=== PATIENT | female | born 1950 | race Caucasian/White ===

== ENCOUNTER → 2021-02-02 | Outpatient (CLI) | payer MEDICARE ==
[~2021-02-02] MED LIST: ALPRAZOLAM0.5 MG PO; AMITRIPTYLINE H50 M1 PO; AMITRIPTYLINE10 MG PO; ASPIR-TRIN325 MG PO; ASPIRIN81 M1 PO; BACTRIM DS 8001 TA1 PO; CELEBREX200 MG PO; DELTASONE20 MG PO; GLUCOPHAGE1000 MG PO; HYDROCODONE BIT1 T11 PO; HYDROXYZINE HCL25 MG PO; LEVOFLOXACIN500 MG PO; LEVOTHYROXIN0.112 M1 PO; LEVOTHYROXINE112 MCG PO; LIPITOR40 MG PO; LISINOPRIL10 MG PO; LISINOPRIL20 MG PO; METFORMIN1000 MG PO; METFORMIN500 MG PO; NYSTATIN CREAM15 GM T; PERCOCET 325 MG1 TA2 PO; PREDNISONE10 MG PO; SYNTHROID0.15 MG PO; TYLENOL WITH CO1 TA1 PO; XANAX0.5 MG PO; ZOFRAN ODT4 MG SL; ZOLOFT100 MG PO; ZOLOFT50 MG PO
[2021-02-02 14:02] LABS: BUN 17 mg/dl (7-24); CHLORIDE 108 mmol/L (98-107); CREATININE 0.92 mg/dL (0.55-1.02); POTASSIUM 3.5 mmol/L (3.5-5.1); SODIUM 140 mmol/L (136-145)
[2021-02-02 14:06] LABS: CHOLESTEROL 346 mg/dL (<200); HDL CHOLESTEROL 75 mg/dl (40-60); LDL CHOLESTEROL 244 mg/dL (9-159); TRIGLYCERIDES 135 mg/dl (<150); VLDL CHOLESTEROL 27 mg/dL (6-40)
== END | disposition home or self-care (01) ==
LOC: LAB 12:17
PROVIDERS: ATTEND Internal Medicine
DX: M51.36 Other intervertebral disc degeneration, lumbar region (principal); M47.816 Spondylosis without myelopathy or radiculopathy, lumbar region; I10 Essential (primary) hypertension; E03.9 Hypothyroidism, unspecified; E78.5 Hyperlipidemia, unspecified; E11.9 Type 2 diabetes mellitus without complications; E55.9 Vitamin D deficiency, unspecified

== ENCOUNTER 2021-10-12 06:03 | Emergency (ER) | payer MEDICARE ==
[~2021-10-12] VITALS: Ht 157.4 cm; Wt 94.5 kg
[2021-10-12 07:02] LABS: HEMATOCRIT 37.3 % (37.0-47.0); MEAN CORPUSCULAR HGB 27.4 pg (27.0-31.0); MEAN CORPUSCULAR HGB CONC 30.8 g/dl (33.0-37.0); MEAN PLATELET VOLUME 11.3 fl (9.6-12.3); PLATELET COUNT AUTOMATED 150 10*3/uL (130-400); RED BLOOD COUNT 4.19 10*6/uL (4.10-5.10); RED CELL DISTRI WIDTH 15.2 % (0-14.5); WHITE BLOOD COUNT 13.7 10*3/uL (4.8-10.8)
[2021-10-12 07:13] LABS: ACT PARTIAL THROMBO TIME 39.6 SECONDS (20.0-32.1)
[2021-10-12 07:18] LABS: ALBUMIN 3.1 gm/dl (3.1-4.5); CREATININE 1.16 mg/dL (0.55-1.02); POTASSIUM 3.5 mmol/L (3.5-5.1); TOTAL PROTEIN 5.5 gm/dL (6.4-8.2)
[2021-10-12 07:27] LABS: PLATELET SUFFICIENCY NORMAL (NORMAL); TOTAL CELLS COUNTED 100 #CELLS
[2021-10-12 07:37] VITALS: BP 132/88
== END 2021-10-12 07:33 | disposition short-term general hospital (02) ==
LOC: ED 06:03
PROVIDERS: Emergency Medicine
DX: I21.3 ST elevation (STEMI) myocardial infarction of unspecified site (principal); I10 Essential (primary) hypertension; E11.9 Type 2 diabetes mellitus without complications; Z86.73 Personal history of transient ischemic attack (TIA), and cerebral infarction without residual deficits; Z79.899 Other long term (current) drug therapy; Z79.82 Long term (current) use of aspirin; E78.5 Hyperlipidemia, unspecified; E03.9 Hypothyroidism, unspecified

== ENCOUNTER 2021-10-20 15:38 | Inpatient (IN) | payer MEDICARE ==
[~2021-10-20] VITALS: Ht 177.8 cm; Wt 87.1 kg
[2021-10-20 15:44] VITALS: BP 168/67
[2021-10-20 16:43] LABS: BASO % 0.3 % (0.0-1.0); EOS # 0.1 10*3/uL (0.0-0.4); EOS % 1.7 % (1.0-4.0); HEMATOCRIT 36.4 % (37.0-47.0); LYMPH # 1.1 10*3/uL (1.3-4.4); LYMPH % 15.4 % (27.0-41.0); MEAN CELL VOLUME 86.5 fl (81.0-99.0); MEAN CORPUSCULAR HGB 27.8 pg (27.0-31.0); MEAN CORPUSCULAR HGB CONC 32.1 g/dl (33.0-37.0); MEAN PLATELET VOLUME 11.3 fl (9.6-12.3); MONO # 0.3 10*3/uL (0.1-1.0); MONO % 4.9 % (3.0-9.0); NEUT # 5.3 10*3/uL (2.3-7.9); NEUT % 76.5 % (47.0-73.0); PLATELET COUNT AUTOMATED 193 10*3/uL (130-400); RED BLOOD COUNT 4.21 10*6/uL (4.10-5.10); RED CELL DISTRI WIDTH 15.6 % (0-14.5); WHITE BLOOD COUNT 6.9 10*3/uL (4.8-10.8)
[2021-10-20 17:04] LABS: ACT PARTIAL THROMBO TIME 24.1 SECONDS (20.0-32.1)
[2021-10-20 17:29] LABS: ALKALINE PHOSPHATASE 90 U/L (45-117); BUN 13 mg/dl (7-24); CREATININE 0.97 mg/dL (0.55-1.02); POTASSIUM 3.3 mmol/L (3.5-5.1); SGOT/AST 15 IU/L (3-35); SGPT/ALT 46 U/L (12-78); SODIUM 143 mmol/L (136-145); TOTAL PROTEIN 5.9 gm/dL (6.4-8.2)
[2021-10-20 17:33] LABS: CHLORIDE 110 mmol/L (98-107)
[2021-10-20 20:05] VITALS: BP 148/80; BP 185/86
[2021-10-20 21:20] VITALS: BP 175/69
[2021-10-20] MEDS ORDERED: BRILINTA90 M1 PO (22:36)
[2021-10-20] MEDS ORDERED: DUTOPROL 25-121 EACH PO (22:44)
[2021-10-20] MEDS ORDERED: Synthroid,Levo50 MCG PO (22:45)
[2021-10-20] MEDS ORDERED: ZOLOFT50 MG PO (22:48)
[2021-10-20] MEDS ORDERED: AMITRIPTYLINE25 MG PO (22:49)
[2021-10-20] MEDS ORDERED: PROTONIX40 MG PO (22:49)
[2021-10-20] MEDS ORDERED: ATORVASTATIN CA80 M1 PO (22:49)
[2021-10-21] VITALS: BP 149/60
[2021-10-21 05:55] LABS: ALBUMIN 3.1 gm/dl (3.1-4.5); ALKALINE PHOSPHATASE 92 U/L (45-117); BUN 11 mg/dl (7-24); CHLORIDE 112 mmol/L (98-107); CKMB 1.2 ng/ml (0.5-3.6); CPK 77 U/L (26-192); SGOT/AST 16 IU/L (3-35); SGPT/ALT 41 U/L (12-78); SODIUM 142 mmol/L (136-145); TOTAL PROTEIN 5.8 gm/dL (6.4-8.2)
[2021-10-21 05:56] LABS: FREE T4 0.64 ng/dl (0.76-1.46)
[2021-10-21 06:13] LABS: BASO % 0.5 % (0.0-1.0); EOS # 0.1 10*3/uL (0.0-0.4); EOS % 2.1 % (1.0-4.0); HEMATOCRIT 38.1 % (37.0-47.0); LYMPH # 1.2 10*3/uL (1.3-4.4); LYMPH % 19.6 % (27.0-41.0); MEAN CELL VOLUME 89.2 fl (81.0-99.0); MEAN CORPUSCULAR HGB 27.6 pg (27.0-31.0); MEAN PLATELET VOLUME 11.4 fl (9.6-12.3); MONO # 0.3 10*3/uL (0.1-1.0); MONO % 5.1 % (3.0-9.0); NEUT # 4.4 10*3/uL (2.3-7.9); NEUT % 71.6 % (47.0-73.0); PLATELET COUNT AUTOMATED 172 10*3/uL (130-400); RED BLOOD COUNT 4.27 10*6/uL (4.10-5.10); RED CELL DISTRI WIDTH 15.7 % (0-14.5); WHITE BLOOD COUNT 6.1 10*3/uL (4.8-10.8)
[2021-10-21 08:00] VITALS: BP 156/63
[2021-10-21 09:05] LABS: VITAMIN D, 25-HYDROXY 15.4 ng/mL (30-100)
[2021-10-21 12:00] VITALS: BP 103/67
[2021-10-21] MEDS ORDERED: IMDUR SA30 MG PO (13:22)
== END 2021-10-21 14:39 | disposition home or self-care (01) | DRG 281 ==
LOC: ED 15:38 → EDHOLD 20:15 → 4E 20:28
PROVIDERS: Emergency Medicine; Internal Medicine; ADMIT Internal Medicine; ATTEND Internal Medicine
DX: I21.4 Non-ST elevation (NSTEMI) myocardial infarction (principal); E44.0 Moderate protein-calorie malnutrition; J98.11 Atelectasis; I10 Essential (primary) hypertension; I25.10 Atherosclerotic heart disease of native coronary artery without angina pectoris; E03.9 Hypothyroidism, unspecified; E87.6 Hypokalemia; D64.9 Anemia, unspecified; E87.8 Other disorders of electrolyte and fluid balance, not elsewhere classified; E80.6 Other disorders of bilirubin metabolism; E78.5 Hyperlipidemia, unspecified; E11.65 Type 2 diabetes mellitus with hyperglycemia; F32.A Depression, unspecified; G47.30 Sleep apnea, unspecified; G89.29 Other chronic pain; M54.9 Dorsalgia, unspecified; M17.12 Unilateral primary osteoarthritis, left knee; I25.110 Atherosclerotic heart disease of native coronary artery with unstable angina pectoris; Z86.73 Personal history of transient ischemic attack (TIA), and cerebral infarction without residual deficits; Z80.0 Family history of malignant neoplasm of digestive organs; Z79.899 Other long term (current) drug therapy; Z82.0 Family history of epilepsy and other diseases of the nervous system; Z95.5 Presence of coronary angioplasty implant and graft; Z79.82 Long term (current) use of aspirin; Z68.27 Body mass index [BMI] 27.0-27.9, adult

== ENCOUNTER 2021-11-22 16:44 | Inpatient (IN) | payer MEDICARE ==
[~2021-11-22] VITALS: Ht 157.4 cm; Wt 83.7 kg
[~2021-11-22 16:44] MED LIST changes: +AMITRIPTYLINE25 MG PO; +ATORVASTATIN CA80 M1 PO; +BRILINTA90 M1 PO; +DUTOPROL 25-121 EACH PO; +IMDUR SA30 MG PO; +PROTONIX40 MG PO; +Synthroid,Levo50 MCG PO
[2021-11-22 16:52] VITALS: BP 120/51
[2021-11-22 17:41] LABS: HEMATOCRIT 39.7 % (37.0-47.0); MEAN CELL VOLUME 86.9 fl (81.0-99.0); MEAN CORPUSCULAR HGB 27.6 pg (27.0-31.0); MEAN CORPUSCULAR HGB CONC 31.7 g/dl (33.0-37.0); MEAN PLATELET VOLUME 12.9 fl (9.6-12.3); PLATELET COUNT AUTOMATED 143 10*3/uL (130-400); RED BLOOD COUNT 4.57 10*6/uL (4.10-5.10); RED CELL DISTRI WIDTH 15.3 % (0-14.5); WHITE BLOOD COUNT 7.5 10*3/uL (4.8-10.8)
[2021-11-22 17:52] LABS: ACT PARTIAL THROMBO TIME 26.4 SECONDS (20.0-32.1)
[2021-11-22 17:59] LABS: ALBUMIN 3.4 gm/dl (3.1-4.5); CREATININE 1.1 mg/dL (0.55-1.02); POTASSIUM 3.5 mmol/L (3.5-5.1)
[2021-11-22 18:05] LABS: PLATELET SUFFICIENCY NORMAL (NORMAL); TOTAL CELLS COUNTED 100 #CELLS
[2021-11-22 18:47] LABS: BILIRUBIN 1+ (Negative); BLOOD Trace-Lysed (Negative); CLARITY Clear (Clear); COLOR Orange (Yellow); GLUCOSE Negative (Negative); KETONE Negative (Negative); LEUKO ESTERASE 1+ (Negative); NITRITE Positive (Negative); SPECIFIC GRAVITY 1.025 (1.001-1.030)
[2021-11-22 18:49] LABS: BACTERIA TRACE
[2021-11-22] MEDS ORDERED: LEVOTHYROXINE125 MCG PO (20:31)
[2021-11-22] MEDS ORDERED: Lopressor25 MG PO (20:32)
[2021-11-22 20:33] VITALS: BP 125/61
[2021-11-23 01:30] VITALS: BP 122/54
[2021-11-23 01:40] VITALS: BP 142/56
[2021-11-23 07:05] LABS: HEMATOCRIT 34.7 % (37.0-47.0); MEAN CELL VOLUME 88.3 fl (81.0-99.0); MEAN CORPUSCULAR HGB 30.8 pg (27.0-31.0); MEAN CORPUSCULAR HGB CONC 34.9 g/dl (33.0-37.0); MEAN PLATELET VOLUME 13.5 fl (9.6-12.3); PLATELET COUNT AUTOMATED 109 10*3/uL (130-400); RED BLOOD COUNT 3.93 10*6/uL (4.10-5.10); RED CELL DISTRI WIDTH 15.4 % (0-14.5); WHITE BLOOD COUNT 4.8 10*3/uL (4.8-10.8)
[2021-11-23 07:23] LABS: CHLORIDE 110 mmol/L (98-107); POTASSIUM 3.4 mmol/L (3.5-5.1); SODIUM 141 mmol/L (136-145)
[2021-11-23 07:36] LABS: ALBUMIN 2.5 gm/dl (3.1-4.5); ALKALINE PHOSPHATASE 155 U/L (45-117); BUN 17 mg/dl (7-24); CHOLESTEROL 129 mg/dL (<200); CREATININE 0.73 mg/dL (0.55-1.02); FREE T4 1.68 ng/dl (0.76-1.46); LDL CHOLESTEROL 63 mg/dL (9-159); SGOT/AST 65 IU/L (3-35); SGPT/ALT 339 U/L (12-78); TOTAL PROTEIN 5.5 gm/dL (6.4-8.2); TRIGLYCERIDES 144 mg/dl (<150)
[2021-11-23 07:51] LABS: PLATELET SUFFICIENCY LOW (NORMAL); TOTAL CELLS COUNTED 100 #CELLS
[2021-11-23 08:00] VITALS: BP 134/50
[2021-11-23 12:00] VITALS: BP 153/63
[2021-11-23 20:00] VITALS: BP 138/49
[2021-11-24] VITALS: BP 139/51
[2021-11-24 05:06] LABS: HEP B CORE AB, IGM Negative (Negative); HEPATITIS B SURFACE AG Negative (Negative); HEPATITIS C VIRUS ANTIBODY <0.1 s/co (0.0-0.9)
[2021-11-24 07:09] LABS: ALBUMIN 2.7 gm/dl (3.1-4.5); BUN 19 mg/dl (7-24); CHLORIDE 108 mmol/L (98-107); POTASSIUM 3.9 mmol/L (3.5-5.1); SODIUM 139 mmol/L (136-145)
[2021-11-24 07:17] LABS: ALKALINE PHOSPHATASE 144 U/L (45-117); CREATININE 0.78 mg/dL (0.55-1.02); SGOT/AST 29 IU/L (3-35); SGPT/ALT 247 U/L (12-78); TOTAL PROTEIN 6.1 gm/dL (6.4-8.2)
[2021-11-24 09:13] LABS: BASO # 0.1 10*3/uL (0.0-0.1); BASO % 1.1 % (0.0-1.0); EOS # 0.2 10*3/uL (0.0-0.4); EOS % 3.4 % (1.0-4.0); HEMATOCRIT 37.4 % (37.0-47.0); LYMPH # 0.8 10*3/uL (1.3-4.4); MEAN CELL VOLUME 87.6 fl (81.0-99.0); MEAN CORPUSCULAR HGB 27.9 pg (27.0-31.0); MEAN CORPUSCULAR HGB CONC 31.8 g/dl (33.0-37.0); MEAN PLATELET VOLUME 12.6 fl (9.6-12.3); MONO # 0.3 10*3/uL (0.1-1.0); MONO % 5.5 % (3.0-9.0); NEUT # 3.5 10*3/uL (2.3-7.9); NEUT % 73.6 % (47.0-73.0); PLATELET COUNT AUTOMATED 132 10*3/uL (130-400); RED BLOOD COUNT 4.27 10*6/uL (4.10-5.10); RED CELL DISTRI WIDTH 15.1 % (0-14.5); WHITE BLOOD COUNT 4.7 10*3/uL (4.8-10.8)
[2021-11-24 10:34] VITALS: BP 140/88
[2021-11-24 12:00] VITALS: BP 112/47
[2021-11-24] MEDS ORDERED: CEFUROXIME AXE500 MG PO (15:40)
[2021-11-24] MEDS ORDERED: ASPIRIN ADULT L81 M2 PO (15:40)
[2021-11-24 16:00] VITALS: BP 127/45
== END 2021-11-24 17:27 | DRG 689 ==
LOC: ED 16:44 → 4E 22:16 → EDHOLD 22:16 → 4E 11-23 00:42
PROVIDERS: Emergency Medicine; Internal Medicine; ADMIT Family Medicine; ATTEND Family Medicine
DX: N30.00 Acute cystitis without hematuria (principal); N17.0 Acute kidney failure with tubular necrosis; G93.41 Metabolic encephalopathy; I50.9 Heart failure, unspecified; Z20.822 Contact with and (suspected) exposure to COVID-19; E83.41 Hypermagnesemia; E78.5 Hyperlipidemia, unspecified; F32.A Depression, unspecified; I25.10 Atherosclerotic heart disease of native coronary artery without angina pectoris; E11.65 Type 2 diabetes mellitus with hyperglycemia; D69.6 Thrombocytopenia, unspecified; E87.6 Hypokalemia; E87.8 Other disorders of electrolyte and fluid balance, not elsewhere classified; Z86.73 Personal history of transient ischemic attack (TIA), and cerebral infarction without residual deficits; Z95.5 Presence of coronary angioplasty implant and graft; Z98.891 History of uterine scar from previous surgery; I25.2 Old myocardial infarction; Z79.899 Other long term (current) drug therapy; Z80.0 Family history of malignant neoplasm of digestive organs; Z82.0 Family history of epilepsy and other diseases of the nervous system

== ENCOUNTER 2021-12-28 11:23 | Emergency (ER) | payer MEDICARE ==
[~2021-12-28] VITALS: Ht 157.4 cm; Wt 93.4 kg
[~2021-12-28 11:23] MED LIST changes: -OMNICEF300 MG PO; -ZITHROMAX250 MG PO
[2021-12-28 11:56] LABS: BASO % 0.3 % (0.0-1.0); EOS # 0.1 10*3/uL (0.0-0.4); EOS % 1.1 % (1.0-4.0); HEMATOCRIT 34.8 % (37.0-47.0); LYMPH # 0.7 10*3/uL (1.3-4.4); LYMPH % 10.9 % (27.0-41.0); MEAN CELL VOLUME 86.6 fl (81.0-99.0); MEAN CORPUSCULAR HGB 26.9 pg (27.0-31.0); MEAN PLATELET VOLUME 12.7 fl (9.6-12.3); MONO # 0.4 10*3/uL (0.1-1.0); MONO % 6.2 % (3.0-9.0); NEUT % 81.3 % (47.0-73.0); PLATELET COUNT AUTOMATED 159 10*3/uL (130-400); RED BLOOD COUNT 4.02 10*6/uL (4.10-5.10); RED CELL DISTRI WIDTH 13.8 % (0-14.5); WHITE BLOOD COUNT 6.2 10*3/uL (4.8-10.8)
[2021-12-28 12:11] LABS: ACT PARTIAL THROMBO TIME 25.1 SECONDS (20.0-32.1)
[2021-12-28 12:19] LABS: ALKALINE PHOSPHATASE 77 U/L (45-117); BUN 13 mg/dl (7-24); CHLORIDE 111 mmol/L (98-107); CREATININE 0.73 mg/dL (0.55-1.02); POTASSIUM 3.5 mmol/L (3.5-5.1); SGOT/AST 10 IU/L (3-35); SGPT/ALT 17 U/L (12-78); SODIUM 143 mmol/L (136-145); TOTAL PROTEIN 6.1 gm/dL (6.4-8.2)
[2021-12-28 14:00] VITALS: BP 151/64
[2021-12-28] MEDS ORDERED: OMNICEF300 MG PO (14:43)
[2021-12-28] MEDS ORDERED: ZITHROMAX250 MG PO (14:43)
== END 2021-12-28 14:54 | disposition home or self-care (01) ==
LOC: ED 11:23
PROVIDERS: Internal Medicine
DX: J18.9 Pneumonia, unspecified organism (principal); Z79.899 Other long term (current) drug therapy; Z90.49 Acquired absence of other specified parts of digestive tract; Z98.890 Other specified postprocedural states

== ENCOUNTER → 2021-12-28 | Outpatient (CLI) | payer MEDICARE ==
[~2021-12-28] MED LIST changes: +ASPIRIN ADULT L81 M2 PO; +CEFUROXIME AXE500 MG PO; +LEVOTHYROXINE125 MCG PO; +Lopressor25 MG PO; +OMNICEF300 MG PO; +ZITHROMAX250 MG PO
[2021-12-28 09:55] LABS: BASO % 0.5 % (0.0-1.0); EOS # 0.1 10*3/uL (0.0-0.4); EOS % 1.8 % (1.0-4.0); HEMATOCRIT 35.8 % (37.0-47.0); LYMPH % 15.1 % (27.0-41.0); MEAN CELL VOLUME 86.3 fl (81.0-99.0); MEAN CORPUSCULAR HGB 26.7 pg (27.0-31.0); MEAN PLATELET VOLUME 12.6 fl (9.6-12.3); MONO # 0.4 10*3/uL (0.1-1.0); MONO % 6.7 % (3.0-9.0); NEUT % 75.6 % (47.0-73.0); PLATELET COUNT AUTOMATED 179 10*3/uL (130-400); RED BLOOD COUNT 4.15 10*6/uL (4.10-5.10); WHITE BLOOD COUNT 6.6 10*3/uL (4.8-10.8)
[2021-12-28 10:12] LABS: BUN 13 mg/dl (7-24); CHLORIDE 110 mmol/L (98-107); CREATININE 0.75 mg/dL (0.55-1.02); POTASSIUM 3.7 mmol/L (3.5-5.1); SODIUM 141 mmol/L (136-145)
[2021-12-28 10:18] LABS: THYROID STIM HORMONE (HS) 0.068 uIU/ml (0.358-4.75)
== END | disposition home or self-care (01) ==
LOC: LAB 09:03
PROVIDERS: ATTEND Internal Medicine
DX: E11.9 Type 2 diabetes mellitus without complications (principal)

== ENCOUNTER → 2022-02-14 | Outpatient (CLI) | payer MEDICARE ==
[~2022-02-14] MED LIST changes: +OMNICEF300 MG PO; +ZITHROMAX250 MG PO
== END | disposition home or self-care (01) ==
LOC: RAD 17:29
PROVIDERS: ATTEND Internal Medicine
DX: M16.12 Unilateral primary osteoarthritis, left hip (principal)

== ENCOUNTER 2022-03-08 17:20 | Inpatient (IN) | payer MEDICARE ==
[~2022-03-08] VITALS: Ht 157.4 cm; Wt 80.1 kg
[2022-03-08 17:30] VITALS: BP 157/67
[2022-03-08 18:12] LABS: BASO % 0.6 % (0.0-1.0); EOS # 0.1 10*3/uL (0.0-0.4); MEAN CELL VOLUME 80.2 fl (81.0-99.0); MEAN CORPUSCULAR HGB 25.3 pg (27.0-31.0); MEAN CORPUSCULAR HGB CONC 31.6 g/dl (33.0-37.0); MEAN PLATELET VOLUME 12.2 fl (9.6-12.3); MONO # 0.3 10*3/uL (0.1-1.0); MONO % 6.4 % (3.0-9.0); NEUT # 3.5 10*3/uL (2.3-7.9); NEUT % 71.4 % (47.0-73.0); PLATELET COUNT AUTOMATED 185 10*3/uL (130-400); RED BLOOD COUNT 4.74 10*6/uL (4.10-5.10); RED CELL DISTRI WIDTH 15.2 % (0-14.5); WHITE BLOOD COUNT 4.9 10*3/uL (4.8-10.8)
[2022-03-08 18:23] LABS: ACT PARTIAL THROMBO TIME 23.5 SECONDS (20.0-32.1)
[2022-03-08 18:27] LABS: ALKALINE PHOSPHATASE 69 U/L (45-117); BUN 10 mg/dl (7-24); CHLORIDE 107 mmol/L (98-107); CREATININE 0.72 mg/dL (0.55-1.02); LIPASE 112 U/L (73-393); POTASSIUM 3.6 mmol/L (3.5-5.1); SGOT/AST 14 IU/L (3-35); SGPT/ALT 27 U/L (12-78); SODIUM 137 mmol/L (136-145)
[2022-03-08] MEDS ORDERED: NORTRIPTYLINE H25 M1 PO (18:29)
[2022-03-08] MEDS ORDERED: OXYBUTYNIN CHLOR5 M1 PO (18:30)
[2022-03-08] MEDS ORDERED: LISINOPRIL20 MG PO (18:30)
[2022-03-08 18:50] LABS: BILIRUBIN Negative (Negative); BLOOD Negative (Negative); CLARITY Cloudy (Clear); COLOR Yellow (Yellow); GLUCOSE Negative (Negative); KETONE Negative (Negative); LEUKO ESTERASE 1+ (Negative); NITRITE Negative (Negative); PH 5.5 (4.5-8.0); UROBILINOGEN 0.2 E.U./dl (0.0-1.0)
[2022-03-08 19:13] LABS: BACTERIA 1+; EPITHELIAL CELLS 31-40; RBC 0-2 rbc/hpf (0-2); WBC 16-20 wbc/hpf (0-5)
[2022-03-08 23:32] VITALS: BP 134/62
[2022-03-09 06:10] LABS: BUN 8 mg/dl (7-24); CHLORIDE 108 mmol/L (98-107); CREATININE 0.58 mg/dL (0.55-1.02); POTASSIUM 3.6 mmol/L (3.5-5.1); SODIUM 140 mmol/L (136-145)
[2022-03-09 06:17] LABS: BASO % 0.6 % (0.0-1.0); EOS # 0.1 10*3/uL (0.0-0.4); EOS % 1.7 % (1.0-4.0); HEMATOCRIT 34.8 % (37.0-47.0); LYMPH # 0.8 10*3/uL (1.3-4.4); LYMPH % 23.5 % (27.0-41.0); MEAN CELL VOLUME 80.4 fl (81.0-99.0); MEAN CORPUSCULAR HGB 25.4 pg (27.0-31.0); MEAN CORPUSCULAR HGB CONC 31.6 g/dl (33.0-37.0); MEAN PLATELET VOLUME 12.2 fl (9.6-12.3); MONO # 0.3 10*3/uL (0.1-1.0); MONO % 8.2 % (3.0-9.0); NEUT # 2.3 10*3/uL (2.3-7.9); NEUT % 65.7 % (47.0-73.0); PLATELET COUNT AUTOMATED 153 10*3/uL (130-400); RED BLOOD COUNT 4.33 10*6/uL (4.10-5.10); RED CELL DISTRI WIDTH 15.2 % (0-14.5); WHITE BLOOD COUNT 3.5 10*3/uL (4.8-10.8)
[2022-03-09 08:00] VITALS: BP 153/58
[2022-03-09 12:00] VITALS: BP 148/54
[2022-03-09 16:00] VITALS: BP 110/58
[2022-03-09 20:00] VITALS: BP 130/70
[2022-03-10] VITALS: BP 136/64
[2022-03-10 06:00] LABS: BUN 7 mg/dl (7-24); CHLORIDE 108 mmol/L (98-107); CREATININE 0.62 mg/dL (0.55-1.02); POTASSIUM 3.4 mmol/L (3.5-5.1); SODIUM 141 mmol/L (136-145)
[2022-03-10 06:11] LABS: BASO % 0.6 % (0.0-1.0); EOS # 0.1 10*3/uL (0.0-0.4); EOS % 2.8 % (1.0-4.0); LYMPH # 1.1 10*3/uL (1.3-4.4); LYMPH % 22.9 % (27.0-41.0); MEAN CELL VOLUME 81.1 fl (81.0-99.0); MEAN CORPUSCULAR HGB 25.5 pg (27.0-31.0); MEAN CORPUSCULAR HGB CONC 31.4 g/dl (33.0-37.0); MEAN PLATELET VOLUME 11.9 fl (9.6-12.3); MONO # 0.3 10*3/uL (0.1-1.0); MONO % 6.7 % (3.0-9.0); NEUT # 3.3 10*3/uL (2.3-7.9); NEUT % 66.6 % (47.0-73.0); PLATELET COUNT AUTOMATED 156 10*3/uL (130-400); RED BLOOD COUNT 4.44 10*6/uL (4.10-5.10); RED CELL DISTRI WIDTH 15.7 % (0-14.5); WHITE BLOOD COUNT 4.9 10*3/uL (4.8-10.8)
[2022-03-10 08:00] VITALS: BP 160/72
[2022-03-10 12:00] VITALS: BP 167/67
[2022-03-10 16:00] VITALS: BP 142/66
[2022-03-10 20:00] VITALS: BP 155/52
[2022-03-11 00:01] VITALS: BP 139/40
[2022-03-11 06:12] LABS: BASO % 0.7 % (0.0-1.0); EOS # 0.1 10*3/uL (0.0-0.4); EOS % 2.4 % (1.0-4.0); HEMATOCRIT 35.2 % (37.0-47.0); LYMPH # 0.9 10*3/uL (1.3-4.4); MEAN CELL VOLUME 80.7 fl (81.0-99.0); MEAN CORPUSCULAR HGB 25.7 pg (27.0-31.0); MEAN CORPUSCULAR HGB CONC 31.8 g/dl (33.0-37.0); MEAN PLATELET VOLUME 12.4 fl (9.6-12.3); MONO # 0.3 10*3/uL (0.1-1.0); MONO % 7.1 % (3.0-9.0); NEUT # 2.9 10*3/uL (2.3-7.9); NEUT % 67.6 % (47.0-73.0); PLATELET COUNT AUTOMATED 159 10*3/uL (130-400); RED BLOOD COUNT 4.36 10*6/uL (4.10-5.10); RED CELL DISTRI WIDTH 15.8 % (0-14.5); WHITE BLOOD COUNT 4.2 10*3/uL (4.8-10.8)
[2022-03-11 06:19] LABS: CHLORIDE 107 mmol/L (98-107); POTASSIUM 3.4 mmol/L (3.5-5.1); SODIUM 141 mmol/L (136-145)
[2022-03-11 06:26] LABS: BUN 7 mg/dl (7-24); CREATININE 0.62 mg/dL (0.55-1.02)
[2022-03-11 08:00] VITALS: BP 169/74
[2022-03-11 12:00] VITALS: BP 162/56
[2022-03-11 16:00] VITALS: BP 136/52
[2022-03-11 20:00] VITALS: BP 147/56
[2022-03-12] VITALS: BP 141/56
[2022-03-12 05:56] LABS: BUN 8 mg/dl (7-24); CHLORIDE 108 mmol/L (98-107); CREATININE 0.66 mg/dL (0.55-1.02); POTASSIUM 3.9 mmol/L (3.5-5.1); SODIUM 141 mmol/L (136-145)
[2022-03-12 08:00] VITALS: BP 148/46
[2022-03-12 12:00] VITALS: BP 162/49
[2022-03-12 16:00] VITALS: BP 155/68
[2022-03-12 20:00] VITALS: BP 129/78
[2022-03-13] VITALS: BP 145/50
[2022-03-13 08:00] VITALS: BP 161/81
[2022-03-13 08:10] LABS: BUN 8 mg/dl (7-24); CHLORIDE 109 mmol/L (98-107); CREATININE 0.61 mg/dL (0.55-1.02); POTASSIUM 3.8 mmol/L (3.5-5.1); SODIUM 140 mmol/L (136-145)
[2022-03-13 12:00] VITALS: BP 101/60
[2022-03-13] MEDS ORDERED: CIPRO500 MG PO (12:36)
[2022-03-13 16:00] VITALS: BP 108/41
== END 2022-03-13 18:30 | disposition home health service (06) | DRG 690 ==
LOC: ED 17:20 → 5E 22:35 → EDHOLD 22:35 → 5E 03-09 00:11
PROVIDERS: Hospitalist; Internal Medicine; Student in an Organized Health Care Education/Training Program; ADMIT Internal Medicine; ATTEND Internal Medicine
DX: N39.0 Urinary tract infection, site not specified (principal); R54 Age-related physical debility; R62.7 Adult failure to thrive; F32.A Depression, unspecified; E11.65 Type 2 diabetes mellitus with hyperglycemia; Z20.822 Contact with and (suspected) exposure to COVID-19; E03.9 Hypothyroidism, unspecified; G47.33 Obstructive sleep apnea (adult) (pediatric); E78.5 Hyperlipidemia, unspecified; R26.2 Difficulty in walking, not elsewhere classified; E86.0 Dehydration; M54.9 Dorsalgia, unspecified; I25.10 Atherosclerotic heart disease of native coronary artery without angina pectoris; Z98.891 History of uterine scar from previous surgery; Z80.0 Family history of malignant neoplasm of digestive organs; Z90.49 Acquired absence of other specified parts of digestive tract; Z95.5 Presence of coronary angioplasty implant and graft; I25.2 Old myocardial infarction; Z79.82 Long term (current) use of aspirin; Z79.899 Other long term (current) drug therapy; Z68.32 Body mass index [BMI] 32.0-32.9, adult

== ENCOUNTER 2022-03-23 15:49 | Inpatient (IN) | payer MEDICARE ==
[~2022-03-23] VITALS: Ht 157.4 cm; Wt 68.5 kg
[~2022-03-23 15:49] MED LIST changes: +CIPRO500 MG PO; +NORTRIPTYLINE H25 M1 PO; +OXYBUTYNIN CHLOR5 M1 PO
[2022-03-23 15:57] VITALS: BP 173/66
[2022-03-23] MEDS ORDERED: MYRBETRIQ25 M1 PO (16:06)
[2022-03-23 16:51] LABS: BASO % 0.5 % (0.0-1.0); EOS # 0.1 10*3/uL (0.0-0.4); EOS % 0.8 % (1.0-4.0); HEMATOCRIT 38.4 % (37.0-47.0); LYMPH # 0.9 10*3/uL (1.3-4.4); LYMPH % 14.4 % (27.0-41.0); MEAN CELL VOLUME 81.4 fl (81.0-99.0); MEAN CORPUSCULAR HGB 25.8 pg (27.0-31.0); MEAN CORPUSCULAR HGB CONC 31.8 g/dl (33.0-37.0); MEAN PLATELET VOLUME 12.1 fl (9.6-12.3); MONO # 0.4 10*3/uL (0.1-1.0); MONO % 5.7 % (3.0-9.0); NEUT # 4.9 10*3/uL (2.3-7.9); NEUT % 78.3 % (47.0-73.0); PLATELET COUNT AUTOMATED 169 10*3/uL (130-400); RED BLOOD COUNT 4.72 10*6/uL (4.10-5.10); RED CELL DISTRI WIDTH 16.8 % (0-14.5); WHITE BLOOD COUNT 6.3 10*3/uL (4.8-10.8)
[2022-03-23 17:03] LABS: ACT PARTIAL THROMBO TIME 23.9 SECONDS (20.0-32.1)
[2022-03-23 17:13] LABS: ALKALINE PHOSPHATASE 64 U/L (45-117); BUN 12 mg/dl (7-24); CHLORIDE 106 mmol/L (98-107); CREATININE 0.77 mg/dL (0.55-1.02); LIPASE 48 U/L (73-393); POTASSIUM 3.9 mmol/L (3.5-5.1); SGOT/AST 10 IU/L (3-35); SGPT/ALT 28 U/L (12-78); SODIUM 135 mmol/L (136-145); TOTAL PROTEIN 6.3 gm/dL (6.4-8.2)
[2022-03-23 17:51] LABS: BILIRUBIN Negative (Negative); BLOOD Negative (Negative); CLARITY Cloudy (Clear); COLOR Yellow (Yellow); GLUCOSE Negative (Negative); KETONE Negative (Negative); LEUKO ESTERASE 2+ (Negative); NITRITE Negative (Negative); PH 5.5 (4.5-8.0); SPECIFIC GRAVITY <= 1.005 (1.001-1.030); UROBILINOGEN 0.2 E.U./dl (0.0-1.0)
[2022-03-23 18:29] LABS: BACTERIA 3+; EPITHELIAL CELLS TNTC
[2022-03-23 20:00] VITALS: BP 149/68
[2022-03-23 20:21] VITALS: BP 149/68
[2022-03-23] MEDS ORDERED: METFORMIN HYDR500 MG PO (21:38)
[2022-03-24] VITALS: BP 118/63
[2022-03-24 06:01] LABS: ALKALINE PHOSPHATASE 59 U/L (45-117); BUN 12 mg/dl (7-24); CHLORIDE 106 mmol/L (98-107); CREATININE 0.54 mg/dL (0.55-1.02); POTASSIUM 3.6 mmol/L (3.5-5.1); SGOT/AST 13 IU/L (3-35); SGPT/ALT 22 U/L (12-78); SODIUM 138 mmol/L (136-145); TOTAL PROTEIN 5.8 gm/dL (6.4-8.2)
[2022-03-24 06:20] LABS: BASO % 0.5 % (0.0-1.0); EOS # 0.1 10*3/uL (0.0-0.4); EOS % 0.9 % (1.0-4.0); HEMATOCRIT 36.3 % (37.0-47.0); LYMPH # 0.9 10*3/uL (1.3-4.4); LYMPH % 15.9 % (27.0-41.0); MEAN CELL VOLUME 80.3 fl (81.0-99.0); MEAN CORPUSCULAR HGB 26.1 pg (27.0-31.0); MEAN CORPUSCULAR HGB CONC 32.5 g/dl (33.0-37.0); MEAN PLATELET VOLUME 12.6 fl (9.6-12.3); MONO # 0.4 10*3/uL (0.1-1.0); MONO % 6.8 % (3.0-9.0); NEUT # 4.1 10*3/uL (2.3-7.9); NEUT % 75.7 % (47.0-73.0); PLATELET COUNT AUTOMATED 157 10*3/uL (130-400); RED BLOOD COUNT 4.52 10*6/uL (4.10-5.10); RED CELL DISTRI WIDTH 16.5 % (0-14.5); WHITE BLOOD COUNT 5.5 10*3/uL (4.8-10.8)
[2022-03-24 08:00] VITALS: BP 139/72
[2022-03-24 11:21] LABS: BILIRUBIN Negative (Negative); BLOOD Negative (Negative); CLARITY Clear (Clear); COLOR Yellow (Yellow); GLUCOSE Negative (Negative); KETONE 2+ (Negative); LEUKO ESTERASE Negative (Negative); NITRITE Negative (Negative); SPECIFIC GRAVITY 1.015 (1.001-1.030); UROBILINOGEN 0.2 E.U./dl (0.0-1.0)
[2022-03-24 11:35] LABS: BACTERIA TRACE; MUCOUS TRACE
[2022-03-24 12:00] VITALS: BP 127/49
[2022-03-24 16:00] VITALS: BP 112/50
[2022-03-24 20:00] VITALS: BP 120/47
[2022-03-25] VITALS: BP 148/56
[2022-03-25 08:00] VITALS: BP 142/51
[2022-03-25 08:55] LABS: BASO % 0.6 % (0.0-1.0); EOS # 0.1 10*3/uL (0.0-0.4); EOS % 2.4 % (1.0-4.0); HEMATOCRIT 37.4 % (37.0-47.0); LYMPH # 0.9 10*3/uL (1.3-4.4); MEAN CELL VOLUME 80.6 fl (81.0-99.0); MEAN CORPUSCULAR HGB 25.4 pg (27.0-31.0); MEAN CORPUSCULAR HGB CONC 31.6 g/dl (33.0-37.0); MEAN PLATELET VOLUME 11.6 fl (9.6-12.3); MONO # 0.4 10*3/uL (0.1-1.0); MONO % 7.5 % (3.0-9.0); NEUT # 3.2 10*3/uL (2.3-7.9); NEUT % 69.3 % (47.0-73.0); PLATELET COUNT AUTOMATED 165 10*3/uL (130-400); RED BLOOD COUNT 4.64 10*6/uL (4.10-5.10); RED CELL DISTRI WIDTH 16.8 % (0-14.5); WHITE BLOOD COUNT 4.6 10*3/uL (4.8-10.8)
[2022-03-25 09:06] LABS: BUN 14 mg/dl (7-24); CHLORIDE 106 mmol/L (98-107); CREATININE 0.88 mg/dL (0.55-1.02); POTASSIUM 3.9 mmol/L (3.5-5.1); SODIUM 139 mmol/L (136-145)
[2022-03-25 12:00] VITALS: BP 146/58
[2022-03-25 16:00] VITALS: BP 133/42
[2022-03-25 20:00] VITALS: BP 128/45
[2022-03-26] VITALS: BP 128/42
[2022-03-26 06:23] LABS: BASO % 0.7 % (0.0-1.0); EOS # 0.1 10*3/uL (0.0-0.4); EOS % 2.2 % (1.0-4.0); HEMATOCRIT 34.6 % (37.0-47.0); MEAN CELL VOLUME 80.8 fl (81.0-99.0); MEAN CORPUSCULAR HGB 25.7 pg (27.0-31.0); MEAN CORPUSCULAR HGB CONC 31.8 g/dl (33.0-37.0); MEAN PLATELET VOLUME 12.1 fl (9.6-12.3); MONO # 0.4 10*3/uL (0.1-1.0); NEUT % 66.9 % (47.0-73.0); PLATELET COUNT AUTOMATED 142 10*3/uL (130-400); RED BLOOD COUNT 4.28 10*6/uL (4.10-5.10); RED CELL DISTRI WIDTH 16.9 % (0-14.5); WHITE BLOOD COUNT 4.5 10*3/uL (4.8-10.8)
[2022-03-26 08:00] VITALS: BP 169/54
[2022-03-26 12:00] VITALS: BP 129/50
[2022-03-26 16:00] VITALS: BP 142/48
[2022-03-26 20:00] VITALS: BP 137/56
[2022-03-27] VITALS: BP 129/48
[2022-03-27 06:33] LABS: BASO % 0.7 % (0.0-1.0); EOS # 0.1 10*3/uL (0.0-0.4); EOS % 2.2 % (1.0-4.0); HEMATOCRIT 35.3 % (37.0-47.0); LYMPH # 0.9 10*3/uL (1.3-4.4); LYMPH % 22.4 % (27.0-41.0); MEAN CELL VOLUME 80.8 fl (81.0-99.0); MEAN CORPUSCULAR HGB 25.9 pg (27.0-31.0); MEAN PLATELET VOLUME 12.5 fl (9.6-12.3); MONO # 0.3 10*3/uL (0.1-1.0); MONO % 7.3 % (3.0-9.0); NEUT # 2.7 10*3/uL (2.3-7.9); NEUT % 66.9 % (47.0-73.0); PLATELET COUNT AUTOMATED 132 10*3/uL (130-400); RED BLOOD COUNT 4.37 10*6/uL (4.10-5.10); RED CELL DISTRI WIDTH 16.9 % (0-14.5); WHITE BLOOD COUNT 4.1 10*3/uL (4.8-10.8)
[2022-03-27 08:00] VITALS: BP 108/70; BP 148/50
[2022-03-27 12:00] VITALS: BP 134/66
[2022-03-27 16:00] VITALS: BP 137/47
[2022-03-27 20:00] VITALS: BP 142/82
[2022-03-28] VITALS: BP 145/49
[2022-03-28 08:00] VITALS: BP 139/52
[2022-03-28 12:00] VITALS: BP 138/50
[2022-03-28 16:00] VITALS: BP 135/47
[2022-03-28 20:00] VITALS: BP 146/53
[2022-03-29] VITALS: BP 126/48
[2022-03-29 07:59] VITALS: BP 157/63
[2022-03-29 11:28] VITALS: BP 148/54
[2022-03-29] MEDS ORDERED: OXYBUTYNIN5 MG PO (12:38)
== END 2022-03-29 16:09 | disposition home health service (06) | DRG 689 ==
LOC: ED 15:49 → EDHOLD 18:37 → 5E 18:37
PROVIDERS: Emergency Medicine; Internal Medicine; ADMIT Internal Medicine; ATTEND Internal Medicine
DX: N30.00 Acute cystitis without hematuria (principal); G93.41 Metabolic encephalopathy; E44.0 Moderate protein-calorie malnutrition; F33.9 Major depressive disorder, recurrent, unspecified; E80.6 Other disorders of bilirubin metabolism; I10 Essential (primary) hypertension; E78.2 Mixed hyperlipidemia; E03.9 Hypothyroidism, unspecified; E11.69 Type 2 diabetes mellitus with other specified complication; G47.33 Obstructive sleep apnea (adult) (pediatric); M54.50 Low back pain, unspecified; Z20.822 Contact with and (suspected) exposure to COVID-19; G89.29 Other chronic pain; M17.12 Unilateral primary osteoarthritis, left knee; I25.10 Atherosclerotic heart disease of native coronary artery without angina pectoris; D50.9 Iron deficiency anemia, unspecified; Z68.32 Body mass index [BMI] 32.0-32.9, adult; Z79.899 Other long term (current) drug therapy; Z80.0 Family history of malignant neoplasm of digestive organs; Z79.82 Long term (current) use of aspirin; Z82.49 Family history of ischemic heart disease and other diseases of the circulatory system; Z90.49 Acquired absence of other specified parts of digestive tract; Z95.5 Presence of coronary angioplasty implant and graft

== ENCOUNTER 2022-06-02 04:37 | Emergency (ER) | payer MEDICARE ==
[~2022-06-02] VITALS: Ht 157.4 cm; Wt 62.6 kg
[~2022-06-02 04:37] MED LIST changes: +MACROBID100 M1 PO; +METFORMIN HYDR500 MG PO; +MYRBETRIQ25 M1 PO; +NEURONTIN100 MG PO; +OXYBUTYNIN5 MG PO
[2022-06-02 04:46] VITALS: BP 125/43
[2022-06-02 06:01] LABS: BASO % 0.6 % (0.0-1.0); EOS # 0.1 10*3/uL (0.0-0.4); EOS % 1.7 % (1.0-4.0); HEMATOCRIT 34.5 % (37.0-47.0); LYMPH % 26.9 % (27.0-41.0); MEAN CELL VOLUME 87.6 fl (81.0-99.0); MEAN CORPUSCULAR HGB 27.4 pg (27.0-31.0); MEAN CORPUSCULAR HGB CONC 31.3 g/dl (33.0-37.0); MEAN PLATELET VOLUME 11.5 fl (9.6-12.3); MONO # 0.3 10*3/uL (0.1-1.0); MONO % 8.7 % (3.0-9.0); NEUT # 2.2 10*3/uL (2.3-7.9); NEUT % 61.8 % (47.0-73.0); PLATELET COUNT AUTOMATED 139 10*3/uL (130-400); RED BLOOD COUNT 3.94 10*6/uL (4.10-5.10); RED CELL DISTRI WIDTH 20.2 % (0-14.5); WHITE BLOOD COUNT 3.6 10*3/uL (4.8-10.8)
[2022-06-02 06:09] LABS: ALKALINE PHOSPHATASE 47 U/L (45-117); BUN 16 mg/dl (7-24); CHLORIDE 108 mmol/L (98-107); CREATININE 0.87 mg/dL (0.55-1.02); POTASSIUM 3.4 mmol/L (3.5-5.1); SGOT/AST 33 IU/L (3-35); SGPT/ALT 17 U/L (12-78); SODIUM 141 mmol/L (136-145); TOTAL PROTEIN 5.3 gm/dL (6.4-8.2)
[2022-06-02 07:19] LABS: BILIRUBIN Negative (Negative); BLOOD 2+ (Negative); CLARITY Clear (Clear); COLOR Yellow (Yellow); GLUCOSE Negative (Negative); KETONE 1+ (Negative); LEUKO ESTERASE 1+ (Negative); NITRITE Negative (Negative)
[2022-06-02 07:41] LABS: BACTERIA 2+; RBC 16-20 rbc/hpf (0-2)
== END 2022-06-02 08:49 | disposition home or self-care (01) ==
LOC: ED 04:37
PROVIDERS: Emergency Medicine
DX: R33.9 Retention of urine, unspecified (principal); I10 Essential (primary) hypertension; E78.5 Hyperlipidemia, unspecified; I25.10 Atherosclerotic heart disease of native coronary artery without angina pectoris; E11.9 Type 2 diabetes mellitus without complications; Z98.890 Other specified postprocedural states; Z90.49 Acquired absence of other specified parts of digestive tract; Z95.5 Presence of coronary angioplasty implant and graft; Z79.899 Other long term (current) drug therapy; Z79.82 Long term (current) use of aspirin

== ENCOUNTER 2023-06-04 12:32 | Inpatient (IN) | payer MEDICARE ==
[~2023-06-04] VITALS: Ht 157.5 cm; Wt 89.6 kg
[2023-06-04 10:47] VITALS: BP 125/49
[2023-06-04 13:02] VITALS: BP 171/63
[2023-06-04 13:04] LABS: BASO % 0.4 % (0.0-1.0); EOS # 0.1 10*3/uL (0.0-0.4); EOS % 1.7 % (1.0-4.0); HEMATOCRIT 37.8 % (37.0-47.0); LYMPH # 0.9 10*3/uL (1.3-4.4); LYMPH % 19.1 % (27.0-41.0); MEAN CELL VOLUME 83.8 fl (81.0-99.0); MEAN CORPUSCULAR HGB 27.1 pg (27.0-31.0); MEAN CORPUSCULAR HGB CONC 32.3 g/dl (33.0-37.0); MEAN PLATELET VOLUME 11.2 fl (9.6-12.3); MONO # 0.3 10*3/uL (0.1-1.0); MONO % 5.9 % (3.0-9.0); NEUT # 3.3 10*3/uL (2.3-7.9); NEUT % 72.7 % (47.0-73.0); PLATELET COUNT AUTOMATED 169 10*3/uL (130-400); RED BLOOD COUNT 4.51 10*6/uL (4.10-5.10); RED CELL DISTRI WIDTH 14.9 % (0-14.5); WHITE BLOOD COUNT 4.6 10*3/uL (4.8-10.8)
[2023-06-04 13:17] LABS: ACT PARTIAL THROMBO TIME 24.4 SECONDS (20.0-32.1)
[2023-06-04 13:29] LABS: ALKALINE PHOSPHATASE 91 U/L (46-116); BUN 13 mg/dl (9-23); CHLORIDE 107 mmol/L (98-107); LIPASE 29 U/L (12-53); SGPT/ALT 15 U/L (10-49); TOTAL PROTEIN 6.4 gm/dL (6.0-8.0)
[2023-06-04] MEDS ORDERED: LEVOTHYROXINE137 MCG PO (16:10)
[2023-06-04] MEDS ORDERED: GABAPENTIN100 M2 PO (16:11)
[2023-06-04] MEDS ORDERED: MYRBETRIQ25 M1 PO (16:12)
[2023-06-04 18:00] VITALS: BP 152/42
[2023-06-04 19:42] LABS: BILIRUBIN Negative (Negative); BLOOD Negative (Negative); CLARITY Clear (Clear); COLOR Yellow (Yellow); GLUCOSE Negative (Negative); KETONE Negative (Negative); LEUKO ESTERASE Negative (Negative); NITRITE Negative (Negative); SPECIFIC GRAVITY >= 1.030 (1.001-1.030)
[2023-06-04 19:50] LABS: BACTERIA 1+; EPITHELIAL CELLS 0-2; RBC 0-2 rbc/hpf (0-2); WBC 0-2 wbc/hpf (0-5)
[2023-06-04 20:00] VITALS: BP 162/52
[2023-06-04 22:35] VITALS: BP 116/42; BP 154/52
[2023-06-05 00:38] VITALS: BP 169/58
[2023-06-05 07:30] LABS: BASO % 0.2 % (0.0-1.0); EOS # 0.1 10*3/uL (0.0-0.4); EOS % 2.3 % (1.0-4.0); HEMATOCRIT 37.2 % (37.0-47.0); LYMPH # 0.9 10*3/uL (1.3-4.4); LYMPH % 21.1 % (27.0-41.0); MEAN CORPUSCULAR HGB 26.2 pg (27.0-31.0); MEAN CORPUSCULAR HGB CONC 31.2 g/dl (33.0-37.0); MEAN PLATELET VOLUME 11.5 fl (9.6-12.3); MONO # 0.3 10*3/uL (0.1-1.0); MONO % 6.4 % (3.0-9.0); NEUT % 69.8 % (47.0-73.0); PLATELET COUNT AUTOMATED 170 10*3/uL (130-400); RED BLOOD COUNT 4.43 10*6/uL (4.10-5.10); RED CELL DISTRI WIDTH 14.8 % (0-14.5); WHITE BLOOD COUNT 4.4 10*3/uL (4.8-10.8)
[2023-06-05 08:00] VITALS: BP 148/46
[2023-06-05 08:00] LABS: ALKALINE PHOSPHATASE 88 U/L (46-116); BUN 11 mg/dl (9-23); CHLORIDE 107 mmol/L (98-107); CHOLESTEROL 173 mg/dL (<200); FREE T4 1.36 ng/dl (0.89-1.76); LDL CHOLESTEROL 103 mg/dL (9-159); SGPT/ALT 10 U/L (10-49); TOTAL PROTEIN 5.9 gm/dL (6.0-8.0); TRIGLYCERIDES 108 mg/dl (<150)
[2023-06-05 12:00] VITALS: BP 149/63
[2023-06-05 16:00] VITALS: BP 157/49
[2023-06-05 20:00] VITALS: BP 145/40
[2023-06-06] VITALS: BP 156/43
[2023-06-06 06:09] LABS: EOS # 0.1 10*3/uL (0.0-0.4); EOS % 2.3 % (1.0-4.0); HEMATOCRIT 38.2 % (37.0-47.0); LYMPH # 0.8 10*3/uL (1.3-4.4); LYMPH % 19.5 % (27.0-41.0); MEAN CORPUSCULAR HGB 26.1 pg (27.0-31.0); MEAN CORPUSCULAR HGB CONC 30.4 g/dl (33.0-37.0); MEAN PLATELET VOLUME 11.3 fl (9.6-12.3); MONO # 0.3 10*3/uL (0.1-1.0); MONO % 6.8 % (3.0-9.0); NEUT # 2.8 10*3/uL (2.3-7.9); NEUT % 69.6 % (47.0-73.0); PLATELET COUNT AUTOMATED 173 10*3/uL (130-400); RED BLOOD COUNT 4.44 10*6/uL (4.10-5.10); RED CELL DISTRI WIDTH 14.9 % (0-14.5)
[2023-06-06 06:15] LABS: BUN 8 mg/dl (9-23); CHLORIDE 109 mmol/L (98-107); POTASSIUM 3.7 mmol/L (3.4-5.1)
[2023-06-06 08:00] VITALS: BP 150/53
[2023-06-06 11:04] LABS: BASO % 0.7 % (0.0-1.0); EOS # 0.1 10*3/uL (0.0-0.4); EOS % 2.8 % (1.0-4.0); HEMATOCRIT 39.8 % (37.0-47.0); LYMPH # 0.7 10*3/uL (1.3-4.4); LYMPH % 14.9 % (27.0-41.0); MEAN CORPUSCULAR HGB 26.5 pg (27.0-31.0); MEAN CORPUSCULAR HGB CONC 31.2 g/dl (33.0-37.0); MEAN PLATELET VOLUME 11.6 fl (9.6-12.3); MONO # 0.2 10*3/uL (0.1-1.0); MONO % 5.1 % (3.0-9.0); NEUT # 3.3 10*3/uL (2.3-7.9); NEUT % 76.3 % (47.0-73.0); PLATELET COUNT AUTOMATED 187 10*3/uL (130-400); RED BLOOD COUNT 4.68 10*6/uL (4.10-5.10); RED CELL DISTRI WIDTH 15.1 % (0-14.5); WHITE BLOOD COUNT 4.4 10*3/uL (4.8-10.8)
[2023-06-06 11:25] LABS: ALKALINE PHOSPHATASE 91 U/L (46-116); BUN 8 mg/dl (9-23); CHLORIDE 109 mmol/L (98-107); POTASSIUM 3.8 mmol/L (3.4-5.1); SGPT/ALT 9 U/L (10-49); TOTAL PROTEIN 6.4 gm/dL (6.0-8.0)
[2023-06-06 12:00] VITALS: BP 150/42
[2023-06-06] MEDS ORDERED: AMOX-CLAV 875-1 EACH PO (15:53)
[2023-06-06 16:00] VITALS: BP 144/50
== END 2023-06-06 17:40 | disposition home or self-care (01) | DRG 948 ==
LOC: ED 12:32 → EDHOLD 14:36 → 4E 14:36 → EDHOLD 14:54 → 4E 06-05 00:07
PROVIDERS: Emergency Medicine; Internal Medicine; Student in an Organized Health Care Education/Training Program; ADMIT Internal Medicine; ATTEND Internal Medicine
DX: R41.82 Altered mental status, unspecified (principal); K57.32 Diverticulitis of large intestine without perforation or abscess without bleeding; R29.702 NIHSS score 2; I25.10 Atherosclerotic heart disease of native coronary artery without angina pectoris; I10 Essential (primary) hypertension; E03.9 Hypothyroidism, unspecified; E78.5 Hyperlipidemia, unspecified; M54.9 Dorsalgia, unspecified; G89.29 Other chronic pain; F32.A Depression, unspecified; M17.12 Unilateral primary osteoarthritis, left knee; E80.6 Other disorders of bilirubin metabolism; D72.810 Lymphocytopenia; E55.9 Vitamin D deficiency, unspecified; D64.9 Anemia, unspecified; E11.65 Type 2 diabetes mellitus with hyperglycemia; Z90.49 Acquired absence of other specified parts of digestive tract; Z95.5 Presence of coronary angioplasty implant and graft; Z98.891 History of uterine scar from previous surgery; Z82.49 Family history of ischemic heart disease and other diseases of the circulatory system; Z81.8 Family history of other mental and behavioral disorders; Z80.0 Family history of malignant neoplasm of digestive organs

== ENCOUNTER 2024-03-16 13:20 | Inpatient (IN) | payer MEDICARE ==
[2024-03-16] VITALS (8 sets, daily range): BP systolic 96–142; BP diastolic 18–79
[~2024-03-16] VITALS: Ht 157.5 cm; Wt 99.8 kg
[~2024-03-16 13:20] MED LIST changes: +AMOX-CLAV 875-1 EACH PO; +GABAPENTIN100 M2 PO; +Imdur SA60 MG PO; +LEVOTHYROXINE137 MCG PO
[2024-03-16] MEDS ORDERED: SODIUM CHLORIDE 0.9% 1,000 ML IV SCH (13:35)
[2024-03-16] MEDS ORDERED: SODIUM CHLORIDE 0.9% 100 ML BAG IV ONE (14:15)
[2024-03-16] MEDS ORDERED: IOHEXOL 350 MG/ML 100 ML VIAL IV ONE (14:15)
[2024-03-16] MEDS ORDERED: Ondansetron Hydrochloride 4 MG/2 ML VIAL IV ONE ×2 (14:15→21:35)
[2024-03-16 16:55] LABS: HEMATOCRIT 32.6 % (37.0-47.0); MEAN CELL VOLUME 88.6 fl (81.0-99.0); MEAN CORPUSCULAR HGB 26.9 pg (27.0-31.0); MEAN CORPUSCULAR HGB CONC 30.4 g/dl (33.0-37.0); MEAN PLATELET VOLUME 10.5 fl (9.6-12.3); PLATELET COUNT AUTOMATED 231 10*3/uL (130-400); RED BLOOD COUNT 3.68 10*6/uL (4.10-5.10); RED CELL DISTRI WIDTH 19.2 % (0-14.5); WHITE BLOOD COUNT 18.5 10*3/uL (4.8-10.8)
[2024-03-16 16:56] LABS: MANUAL DIFF REFLEX YES
[2024-03-16 17:05] LABS: ACT PARTIAL THROMBO TIME 21.1 SECONDS (20.0-32.1)
[2024-03-16 17:14] LABS: PLATELET SUFFICIENCY NORMAL (NORMAL); TOTAL CELLS COUNTED 100 #CELLS
[2024-03-16 17:16] LABS: BURR CELLS FEW; OVALOCYTES FEW
[2024-03-16 17:44] LABS: ALKALINE PHOSPHATASE 56 U/L (46-116); BUN 27 mg/dl (9-23); CHLORIDE 97 mmol/L (98-107); LIPASE 44 U/L (12-53); POTASSIUM 5.4 mmol/L (3.4-5.1); SGPT/ALT 24 U/L (5-49); TOTAL PROTEIN 5.2 gm/dL (6.0-8.0)
[2024-03-16] MEDS ORDERED: DEXTROSE 50% 25 GM/50 ML SYR IV ONE (19:00)
[2024-03-16] MEDS ORDERED: INSULIN REGULAR, HUMAN 1 UNIT/0.01 ML IV ONE (19:00)
[2024-03-16 19:39] LABS: BILIRUBIN Negative (Negative); BLOOD Negative (Negative); CLARITY Clear (Clear); COLOR Yellow (Yellow); GLUCOSE Negative (Negative); KETONE 1+ (Negative); LEUKO ESTERASE Trace (Negative); NITRITE Positive (Negative); PH 5.5 (4.5-8.0); SPECIFIC GRAVITY 1.015 (1.001-1.030); UROBILINOGEN 0.2 E.U./dl (0.0-1.0)
[2024-03-16 20:01] LABS: BACTERIA 3+; RBC 0-2 rbc/hpf (0-2)
[2024-03-16] MEDS ORDERED: Ceftriaxone Sodium 1 GM/10 ML SYR IV ONE (20:20)
[2024-03-17] VITALS (7 sets, daily range): BP systolic 101–128; BP diastolic 41–78
[2024-03-17] MEDS ORDERED: SODIUM CHLORIDE 0.9% 1,000 ML IV ONE (02:10)
[2024-03-17] MEDS ORDERED: Ondansetron Hydrochloride 4 MG/2 ML VIAL IV ONE (03:10)
[2024-03-17] MEDS ORDERED: BISACODYL 5 MG TAB PO PRN (03:20)
[2024-03-17] MEDS ORDERED: ACETAMINOPHEN 325 MG TAB PO PRN (03:20)
[2024-03-17] MEDS ORDERED: Acetaminophen/Hydrocodone 5 MG/325 MG TABLET PO PRN (03:20)
[2024-03-17] MEDS ORDERED: MORPHINE Sulfate 2 MG/ML SYR IV PRN (03:20)
[2024-03-17] MEDS ORDERED: ACETAMINOPHEN 650 MG SUPP R PRN (03:20)
[2024-03-17] MEDS ORDERED: TEMAZEPAM 15 MG CAP PO PRN (03:20)
[2024-03-17] MEDS ORDERED: BISACODYL 10 MG SUPP R PRN (03:20)
[2024-03-17] MEDS ORDERED: Ondansetron Hydrochloride 4 MG/2 ML VIAL IV PRN (03:20)
[2024-03-17] MEDS ORDERED: Magnesium Hydroxide 30 ML UDC PO PRN (03:20)
[2024-03-17] MEDS ORDERED: Clopidogrel Hydrogen Sulfate 75 MG TAB PO ONE (03:25)
[2024-03-17] MEDS ORDERED: ATORVASTATIN CALCIUM 80 MG TAB PO SCH ×2 (03:25→22:00)
[2024-03-17] MEDS ORDERED: Pantoprazole Sodium 40 MG TAB PO SCH (06:00)
[2024-03-17 07:30] LABS: BASO % 0.1 % (0.0-1.0); HEMATOCRIT 33.2 % (37.0-47.0); LYMPH # 0.5 10*3/uL (1.3-4.4); LYMPH % 3.5 % (27.0-41.0); MEAN CELL VOLUME 87.4 fl (81.0-99.0); MEAN CORPUSCULAR HGB 27.4 pg (27.0-31.0); MEAN CORPUSCULAR HGB CONC 31.3 g/dl (33.0-37.0); MEAN PLATELET VOLUME 10.9 fl (9.6-12.3); MONO # 0.8 10*3/uL (0.1-1.0); MONO % 6.1 % (3.0-9.0); NEUT # 12.2 10*3/uL (2.3-7.9); PLATELET COUNT AUTOMATED 162 10*3/uL (130-400); RED CELL DISTRI WIDTH 19.9 % (0-14.5); WHITE BLOOD COUNT 13.6 10*3/uL (4.8-10.8)
[2024-03-17 07:52] LABS: TOTAL PROTEIN 4.8 gm/dL (6.0-8.0)
[2024-03-17 08:02] LABS: POTASSIUM 4.1 mmol/L (3.4-5.1)
[2024-03-17] MEDS ORDERED: OXYBUTYNIN5 MG PO (09:14)
[2024-03-17] MEDS ORDERED: MIRTAZAPINE7.5 MG PO (09:14)
[2024-03-17] MEDS ORDERED: POTASSIUM CHLO10 MEQ PO (09:15)
[2024-03-17] MEDS ORDERED: Enoxaparin Sodium 30 MG/0.3 ML SYR SC SCH (10:00)
[2024-03-17] MEDS ORDERED: Ceftriaxone Sodium 1 GM in SYRINGE INFUSION 10 ML IV SCH (10:00)
[2024-03-17] MEDS ORDERED: Clopidogrel Hydrogen Sulfate 75 MG TAB PO SCH (10:00)
[2024-03-17] MEDS ORDERED: ASPIRIN ENTERIC COATED 81 MG TAB PO SCH (10:00)
[2024-03-17] MEDS ORDERED: Menthol/Zinc Oxide 4 GM THIN T PRN (12:25)
[2024-03-17] MEDS ORDERED: GADOTERATE MEGLUMINE 10 MMOL/20 ML VIAL IV ONE ×2 (14:16→14:31)
[2024-03-17] MEDS ORDERED: HEPARIN SODIUM 500 UNIT/5 ML SYR IV ONE (14:17)
[2024-03-17] MEDS ORDERED: HEPARIN SODIUM,PORCINE/PF 30 UNIT/3 ML SYRINGE IV ONE (14:21)
[2024-03-17] MEDS ORDERED: HEEL PROTECTOR DEVICE ONE (18:14)
[2024-03-17] MEDS ORDERED: FOAM BANDAGE 6X6 T ONE (18:14)
[2024-03-17] MEDS ORDERED: CHAIR CUSHION DEVICE ONE (18:14)
[2024-03-17] MEDS ORDERED: Menthol/Zinc Oxide 4 GM THIN T SCH (22:00)
[2024-03-17] MEDS ORDERED: NYSTATIN 15 GM BOT T SCH (22:00)
[2024-03-17] MEDS ORDERED: Mirtazapine 15 MG TAB PO SCH (22:00)
[2024-03-17] MEDS ORDERED: NYSTATIN 500,000 UNITS/5 ML UDC PO SCH (22:00)
[2024-03-17] MEDS ORDERED: Sertraline Hydrochloride 50 MG TAB PO SCH (22:00)
[2024-03-17] MEDS ORDERED: Promethazine Hydrochloride 25 MG/ML VIAL IV ONE (23:35)
[2024-03-18] VITALS (8 sets, daily range): BP systolic 90–129; BP diastolic 40–86
[2024-03-18 06:56] LABS: HEMATOCRIT 29.9 % (37.0-47.0); MEAN CELL VOLUME 87.7 fl (81.0-99.0); MEAN CORPUSCULAR HGB 27.6 pg (27.0-31.0); MEAN CORPUSCULAR HGB CONC 31.4 g/dl (33.0-37.0); MEAN PLATELET VOLUME 10.9 fl (9.6-12.3); PLATELET COUNT AUTOMATED 116 10*3/uL (130-400); RED BLOOD COUNT 3.41 10*6/uL (4.10-5.10); RED CELL DISTRI WIDTH 20.1 % (0-14.5); WHITE BLOOD COUNT 8.1 10*3/uL (4.8-10.8)
[2024-03-18 06:59] LABS: MANUAL DIFF REFLEX YES
[2024-03-18 07:03] LABS: ACT PARTIAL THROMBO TIME 22.7 SECONDS (20.0-32.1)
[2024-03-18 07:23] LABS: BURR CELLS MODERATE; PLATELET SUFFICIENCY LOW (NORMAL); POLYCHROMASIA SLIGHT; SCHISTOCYTES FEW; TOTAL CELLS COUNTED 100 #CELLS
[2024-03-18 07:32] LABS: FREE T4 0.85 ng/dl (0.89-1.76); POTASSIUM 3.7 mmol/L (3.4-5.1); TOTAL PROTEIN 5.2 gm/dL (6.0-8.0)
[2024-03-18 08:01] LABS: VITAMIN D, 25-HYDROXY 8.4 ng/mL (30-100)
[2024-03-18 09:01] LABS: LIPASE 40 U/L (12-53)
[2024-03-18] MEDS ORDERED: FOLIC ACID 1 MG TAB PO SCH (10:00)
[2024-03-18] MEDS ORDERED: Pantoprazole Sodium 40 MG TAB PO SCH (10:00)
[2024-03-18] MEDS ORDERED: ERGOCALCIFEROL 50,000 IU CAP (1.25 MG) PO SCH (10:00)
[2024-03-18] MEDS ORDERED: Oxybutynin Chloride 5 MG TAB PO SCH (10:00)
[2024-03-18] MEDS ORDERED: Levothyroxine Sodium 75 MCG TAB PO SCH (10:00)
[2024-03-18] MEDS ORDERED: ASPIRIN ENTERIC COATED 81 MG TAB PO SCH (10:00)
[2024-03-18] MEDS ORDERED: FOAM BANDAGE HEEL T ONE (18:17)
[2024-03-19] VITALS (24 sets, daily range): BP systolic 97–137; BP diastolic 33–57
[2024-03-19 06:39] LABS: HEMATOCRIT 27.9 % (37.0-47.0); MEAN CELL VOLUME 85.8 fl (81.0-99.0); MEAN CORPUSCULAR HGB 27.4 pg (27.0-31.0); MEAN CORPUSCULAR HGB CONC 31.9 g/dl (33.0-37.0); MEAN PLATELET VOLUME 11.7 fl (9.6-12.3); PLATELET COUNT AUTOMATED 101 10*3/uL (130-400); RED BLOOD COUNT 3.25 10*6/uL (4.10-5.10); RED CELL DISTRI WIDTH 20.1 % (0-14.5); WHITE BLOOD COUNT 6.1 10*3/uL (4.8-10.8)
[2024-03-19 06:41] LABS: BUN 28 mg/dl (9-23); CHLORIDE 107 mmol/L (98-107)
[2024-03-19 06:43] LABS: MANUAL DIFF REFLEX YES
[2024-03-19 07:26] LABS: ATYPICAL LYMPHS 1 % (0-0); BURR CELLS MODERATE; PLATELET SUFFICIENCY LOW (NORMAL); TOTAL CELLS COUNTED 100 #CELLS
[2024-03-19 07:27] LABS: MICROCYTOSIS SLIGHT
[2024-03-19] MEDS ORDERED: Glucagon Hydrochloride 1 MG SYR IM ONE (07:35)
[2024-03-19] MEDS ORDERED: DEXTROSE 10 % IN WATER 250 ML IV PRN (07:40)
[2024-03-19] MEDS ORDERED: DEXTROSE 50% 25 GM/50 ML SYR IV ONE ×2 (07:55→07:56)
[2024-03-19] MEDS ORDERED: POTASSIUM CHLORIDE IN WATER 100 ML IV SCH ×2 (08:00→18:00)
[2024-03-19] MEDS ORDERED: POTASSIUM CL D5/.45NS SOL. 1,000 ML IV SCH ×3 (08:16→17:00)
[2024-03-19] MEDS ORDERED: Enoxaparin Sodium 40 MG/0.4 ML SYR SC SCH (10:00)
[2024-03-19] MEDS ORDERED: VANCOMYCIN HCL 125 MG CAPSULE PO SCH (10:00)
[2024-03-19] MEDS ORDERED: SODIUM CHLORIDE 0.9% 1,000 ML IV SCH (12:55)
[2024-03-19] MEDS ORDERED: SODIUM CHLORIDE 0.9% 1,000 ML IV ONE ×3 (13:30→13:45)
[2024-03-19] MEDS ORDERED: DEXTROSE 10 % IN WATER 250 ML IV SCH (13:45)
[2024-03-19 14:24] LABS: BUN 26 mg/dl (9-23); CHLORIDE 109 mmol/L (98-107); POTASSIUM 2.8 mmol/L (3.4-5.1)
[2024-03-19] MEDS ORDERED: VANCOMYCIN HYDROCHLORIDE PO SCH ×2 (15:36→18:00)
[2024-03-19] MEDS ORDERED: NYSTATIN 500,000 UNITS/5 ML UDC PO SCH (18:00)
[2024-03-19 22:30] LABS: BUN 24 mg/dl (9-23); CHLORIDE 111 mmol/L (98-107); POTASSIUM 3.1 mmol/L (3.4-5.1)
[2024-03-19] MEDS ORDERED: hydrOXYzine pamoate 25 MG CAP PO ONE (22:35)
[2024-03-20] VITALS (8 sets, daily range): BP systolic 107–155; BP diastolic 30–80
[2024-03-20] MEDS ORDERED: POTASSIUM CHLORIDE IN WATER 100 ML IV SCH (01:00)
[2024-03-20 05:55] LABS: BUN 24 mg/dl (9-23); CHLORIDE 111 mmol/L (98-107); POTASSIUM 3.7 mmol/L (3.4-5.1)
[2024-03-20] MEDS ORDERED: Pantoprazole Sodium 40 MG VIAL IV SCH ×2 (06:00→18:00)
[2024-03-20 06:18] LABS: HEMATOCRIT 24.2 % (37.0-47.0); MEAN CELL VOLUME 87.1 fl (81.0-99.0); MEAN PLATELET VOLUME 11.9 fl (9.6-12.3); PLATELET COUNT AUTOMATED 85 10*3/uL (130-400); RED BLOOD COUNT 2.78 10*6/uL (4.10-5.10); RED CELL DISTRI WIDTH 20.2 % (0-14.5); WHITE BLOOD COUNT 5.1 10*3/uL (4.8-10.8)
[2024-03-20 06:25] LABS: MANUAL DIFF REFLEX YES
[2024-03-20 07:32] LABS: TOTAL CELLS COUNTED 100 #CELLS
[2024-03-20 07:33] LABS: BURR CELLS FEW; PLATELET SUFFICIENCY LOW (NORMAL)
[2024-03-20] MEDS ORDERED: PANTOPRAZOLE SODIUM IV SCH (10:00)
[2024-03-20] MEDS ORDERED: ASPIRIN, CHEWABLE 81 MG TAB NG SCH (10:16)
[2024-03-20] MEDS ORDERED: ALBUMIN 25% 100 ML IV ONE (10:35)
[2024-03-20] MEDS ORDERED: diphenhydrAMINE HCL;LIDO HCL 1 OZ OZ PO SCH (14:00)
[2024-03-20] MEDS ORDERED: hydrOXYzine hydrochloride 50 MG/ML VIAL IM PRN (19:20)
[2024-03-20] MEDS ORDERED: Prochlorperazine Edisylate 10 MG/2 ML VIAL IV ONE (21:15)
[2024-03-21] VITALS (21 sets, daily range): BP systolic 102–130; BP diastolic 35–82
[2024-03-21] MEDS ORDERED: Prochlorperazine Edisylate 10 MG/2 ML VIAL IV ONE (03:55)
[2024-03-21 05:20] LABS: ALKALINE PHOSPHATASE 56 U/L (46-116); BUN 21 mg/dl (9-23); CHLORIDE 112 mmol/L (98-107); POTASSIUM 3.1 mmol/L (3.4-5.1); SGPT/ALT 28 U/L (5-49); TOTAL PROTEIN 4.5 gm/dL (6.0-8.0)
[2024-03-21 06:26] LABS: HEMATOCRIT 21.8 % (37.0-47.0); MEAN CORPUSCULAR HGB 26.9 pg (27.0-31.0); MEAN CORPUSCULAR HGB CONC 30.3 g/dl (33.0-37.0); PLATELET COUNT AUTOMATED 67 10*3/uL (130-400); RED BLOOD COUNT 2.45 10*6/uL (4.10-5.10); RED CELL DISTRI WIDTH 20.4 % (0-14.5); WHITE BLOOD COUNT 2.2 10*3/uL (4.8-10.8)
[2024-03-21 06:27] LABS: MANUAL DIFF REFLEX YES
[2024-03-21 07:05] LABS: BURR CELLS MODERATE; OVALOCYTES FEW; PLATELET SUFFICIENCY LOW (NORMAL); POLYCHROMASIA SLIGHT; ROULEAUX SLIGHT; SCHISTOCYTES FEW; TOTAL CELLS COUNTED 100 #CELLS
[2024-03-21] MEDS ORDERED: FUROSEMIDE 20 MG/2 ML VIAL IV ONE (08:00)
[2024-03-21] MEDS ORDERED: POTASSIUM CHLORIDE IN WATER 100 ML IV SCH (08:00)
[2024-03-21] MEDS ORDERED: POTASSIUM CHLORIDE 100 ML IV ONE (08:05)
[2024-03-21] MEDS ORDERED: POTASSIUM CHLORIDE IN WATER 100 ML IV ONE (08:05)
[2024-03-21] MEDS ORDERED: Pantoprazole Sodium 40 MG VIAL IV SCH ×2 (10:00→18:00)
[2024-03-21] MEDS ORDERED: SODIUM CHLORIDE 0.9% 500 ML IV ONE (10:06)
[2024-03-21] MEDS ORDERED: Pantoprazole Sodium 40 MG VIAL IV ONE (10:20)
[2024-03-21] MEDS ORDERED: Metoprolol Tartrate 5 MG/5 ML VIAL IV SCH (12:00)
[2024-03-21 18:44] LABS: HEMATOCRIT 29.3 % (37.0-47.0); MEAN CELL VOLUME 86.7 fl (81.0-99.0); MEAN CORPUSCULAR HGB 27.5 pg (27.0-31.0); MEAN CORPUSCULAR HGB CONC 31.7 g/dl (33.0-37.0); MEAN PLATELET VOLUME 11.7 fl (9.6-12.3); PLATELET COUNT AUTOMATED 71 10*3/uL (130-400); RED BLOOD COUNT 3.38 10*6/uL (4.10-5.10); RED CELL DISTRI WIDTH 18.9 % (0-14.5); WHITE BLOOD COUNT 2.1 10*3/uL (4.8-10.8)
[2024-03-21 18:45] LABS: MANUAL DIFF REFLEX YES
[2024-03-21] MEDS ORDERED: FUROSEMIDE 40 MG/4 ML VIAL ONE (18:58)
[2024-03-21 19:07] LABS: PLATELET SUFFICIENCY LOW (NORMAL); TOTAL CELLS COUNTED 100 #CELLS
[2024-03-21 19:08] LABS: BURR CELLS MODERATE; OVALOCYTES FEW
[2024-03-22] VITALS (10 sets, daily range): BP systolic 90–148; BP diastolic 36–78
[2024-03-22 05:19] LABS: ALKALINE PHOSPHATASE 57 U/L (46-116); BUN 24 mg/dl (9-23); CHLORIDE 113 mmol/L (98-107); POTASSIUM 3.5 mmol/L (3.4-5.1); SGPT/ALT 49 U/L (5-49); TOTAL PROTEIN 4.7 gm/dL (6.0-8.0)
[2024-03-22 06:11] LABS: HEMATOCRIT 29.9 % (37.0-47.0); MEAN CORPUSCULAR HGB 28.1 pg (27.0-31.0); MEAN CORPUSCULAR HGB CONC 33.4 g/dl (33.0-37.0); MEAN PLATELET VOLUME 11.2 fl (9.6-12.3); PLATELET COUNT AUTOMATED 71 10*3/uL (130-400); RED BLOOD COUNT 3.56 10*6/uL (4.10-5.10); RED CELL DISTRI WIDTH 19.7 % (0-14.5)
[2024-03-22 06:19] LABS: MANUAL DIFF REFLEX YES
[2024-03-22 07:00] LABS: BURR CELLS MODERATE; OVALOCYTES FEW; PLATELET SUFFICIENCY LOW (NORMAL); POLYCHROMASIA SLIGHT; TOTAL CELLS COUNTED 100 #CELLS
[2024-03-22 07:01] LABS: SCHISTOCYTES FEW
[2024-03-22] MEDS ORDERED: SODIUM CHLORIDE 0.9% 1,000 ML IV ONE (07:26)
[2024-03-22] MEDS ORDERED: Ketamine Hydrochloride 500 MG/10 ML VIAL IV ONE (16:27)
[2024-03-22] MEDS ORDERED: PROPOFOL 200 MG/20 ML VIAL IV ONE (16:27)
[2024-03-22] MEDS ORDERED: [UNRECOGNIZED DRUG - OTHER] IV SCH (18:00)
[2024-03-22] MEDS ORDERED: TOTAL PARENTERAL NUTRITION IV SCH (18:00)
[2024-03-22] MEDS ORDERED: MULTIVITAMIN TRACE ELEMENT IV SCH (18:00)
[2024-03-22] MEDS ORDERED: Safflower/Soybean Oil (LIPOSYN 500 ML IV SCH (18:00)
[2024-03-22] MEDS ORDERED: ACETAMINOPHEN 500 MG TAB PEG PRN (21:16)
[2024-03-22] MEDS ORDERED: Magnesium Hydroxide 30 ML UDC PEG PRN (21:16)
[2024-03-22] MEDS ORDERED: ATORVASTATIN CALCIUM 80 MG TAB PEG SCH (22:00)
[2024-03-22] MEDS ORDERED: Mirtazapine 15 MG TAB PEG SCH (22:00)
[2024-03-22] MEDS ORDERED: Sertraline Hydrochloride 50 MG TAB PEG SCH (22:00)
[2024-03-23] VITALS (13 sets, daily range): BP systolic 97–134; BP diastolic 36–82
[2024-03-23] MEDS ORDERED: VANCOMYCIN HYDROCHLORIDE PEG SCH
[2024-03-23 05:22] LABS: ALKALINE PHOSPHATASE 44 U/L (46-116); BUN 24 mg/dl (9-23); CHLORIDE 113 mmol/L (98-107); POTASSIUM 3.1 mmol/L (3.4-5.1); SGPT/ALT 58 U/L (5-49); TOTAL PROTEIN 3.9 gm/dL (6.0-8.0)
[2024-03-23 06:11] LABS: HEMATOCRIT 24.9 % (37.0-47.0); MEAN CORPUSCULAR HGB 27.6 pg (27.0-31.0); MEAN CORPUSCULAR HGB CONC 31.3 g/dl (33.0-37.0); MEAN PLATELET VOLUME 12.3 fl (9.6-12.3); PLATELET COUNT AUTOMATED 52 10*3/uL (130-400); RED BLOOD COUNT 2.83 10*6/uL (4.10-5.10); RED CELL DISTRI WIDTH 19.9 % (0-14.5)
[2024-03-23 06:14] LABS: MANUAL DIFF REFLEX YES
[2024-03-23 06:15] LABS: WHITE BLOOD COUNT 1.3 10*3/uL (4.8-10.8)
[2024-03-23 07:21] LABS: BASOPHILS 1 % (0-1); TOTAL CELLS COUNTED 100 #CELLS
[2024-03-23 07:22] LABS: BURR CELLS MODERATE; OVALOCYTES FEW; PLATELET SUFFICIENCY LOW (NORMAL); POLYCHROMASIA SLIGHT; SCHISTOCYTES FEW
[2024-03-23] MEDS ORDERED: DEXTROSE 5% IV ONE (08:30)
[2024-03-23] MEDS ORDERED: POTASSIUM PHOSPHATE IV ONE (08:30)
[2024-03-23] MEDS ORDERED: SODIUM CHLORIDE 0.9% 500 ML IV ONE (08:59)
[2024-03-23] MEDS ORDERED: Levothyroxine Sodium 75 MCG TAB PO SCH (10:00)
[2024-03-23] MEDS ORDERED: FOLIC ACID 1 MG TAB PEG SCH (10:00)
[2024-03-23] MEDS ORDERED: ASPIRIN, CHEWABLE 81 MG TAB PEG SCH (10:00)
[2024-03-23] MEDS ORDERED: Metoprolol Tartrate 25 MG TAB PO SCH (10:00)
[2024-03-23] MEDS ORDERED: Oxybutynin Chloride 5 MG TAB PEG SCH (10:00)
[2024-03-23] MEDS ORDERED: Metoprolol Tartrate 50 MG TAB PEG SCH (10:00)
[2024-03-23 13:08] LABS: HEMATOCRIT 29.2 % (37.0-47.0); MANUAL DIFF REFLEX YES; MEAN CELL VOLUME 87.2 fl (81.0-99.0); MEAN CORPUSCULAR HGB 27.8 pg (27.0-31.0); MEAN CORPUSCULAR HGB CONC 31.8 g/dl (33.0-37.0); MEAN PLATELET VOLUME 11.1 fl (9.6-12.3); PLATELET COUNT AUTOMATED 48 10*3/uL (130-400); RED BLOOD COUNT 3.35 10*6/uL (4.10-5.10); RED CELL DISTRI WIDTH 18.2 % (0-14.5)
[2024-03-23 13:09] LABS: WHITE BLOOD COUNT 1.5 10*3/uL (4.8-10.8)
[2024-03-23 13:33] LABS: BURR CELLS FEW; POLYCHROMASIA SLIGHT; TOTAL CELLS COUNTED 100 #CELLS
[2024-03-23 13:34] LABS: OVALOCYTES FEW; PLATELET SUFFICIENCY LOW (NORMAL); ROULEAUX SLIGHT; SCHISTOCYTES FEW
[2024-03-23 17:27] LABS: BILIRUBIN Negative (Negative); BLOOD 1+ (Negative); CLARITY Clear (Clear); COLOR Yellow (Yellow); GLUCOSE 3+ (Negative); KETONE Negative (Negative); LEUKO ESTERASE Negative (Negative); NITRITE Negative (Negative); SPECIFIC GRAVITY >= 1.030 (1.001-1.030); UROBILINOGEN 0.2 E.U./dl (0.0-1.0)
[2024-03-23 17:42] LABS: YEAST 4+
[2024-03-23] MEDS ORDERED: POTASSIUM PHOSPHATE IV SCH (18:00)
[2024-03-23] MEDS ORDERED: [UNRECOGNIZED DRUG - OTHER] IV SCH (18:00)
[2024-03-23] MEDS ORDERED: MULTIVITAMIN IV SCH (18:00)
[2024-03-23] MEDS ORDERED: Alteplase, Recombinant 2 MG/2 ML VIAL IC ONE (19:25)
[2024-03-23 21:40] LABS: ABG BASE EXCESS 1.9 mmol/L (-2.0-2.0); ARTERIAL BLOOD GAS PH 7.461 (7.35-7.45)
[2024-03-23] MEDS ORDERED: Water, Sterile 10 ML VIAL ONE (23:04)
[2024-03-24] VITALS: BP 131/53
[2024-03-24] MEDS ORDERED: FOAM BANDAGE 6X6 T ONE (03:25)
[2024-03-24 04:00] VITALS: BP 125/65; BP 137/54
[2024-03-24 05:33] LABS: ALKALINE PHOSPHATASE 48 U/L (46-116); BUN 21 mg/dl (9-23); CHLORIDE 110 mmol/L (98-107); LDH 725 U/L (120-246); POTASSIUM 3.6 mmol/L (3.4-5.1); SGPT/ALT 64 U/L (5-49); TOTAL PROTEIN 4.1 gm/dL (6.0-8.0)
[2024-03-24 06:04] LABS: BASO % 0.7 % (0.0-1.0); EOS % 1.3 % (1.0-4.0); HEMATOCRIT 27.6 % (37.0-47.0); LYMPH # 0.3 10*3/uL (1.3-4.4); LYMPH % 19.9 % (27.0-41.0); MEAN CELL VOLUME 86.5 fl (81.0-99.0); MEAN CORPUSCULAR HGB 27.6 pg (27.0-31.0); MEAN CORPUSCULAR HGB CONC 31.9 g/dl (33.0-37.0); MEAN PLATELET VOLUME 11.8 fl (9.6-12.3); MONO # 0.1 10*3/uL (0.1-1.0); MONO % 7.3 % (3.0-9.0); NEUT % 66.8 % (47.0-73.0); PLATELET COUNT AUTOMATED 37 10*3/uL (130-400); RED BLOOD COUNT 3.19 10*6/uL (4.10-5.10); RED CELL DISTRI WIDTH 18.5 % (0-14.5); RETICULOCYTE % 0.31 % (0.50-2.50)
[2024-03-24 06:17] LABS: MANUAL DIFF REFLEX YES
[2024-03-24 06:55] LABS: ATYPICAL LYMPHS 1 % (0-0); BURR CELLS FEW; PLATELET SUFFICIENCY LOW (NORMAL); TOTAL CELLS COUNTED 100 #CELLS
[2024-03-24 06:56] LABS: MICROCYTOSIS MODERATE
[2024-03-24 06:58] LABS: WHITE BLOOD COUNT 1.5 10*3/uL (4.8-10.8)
[2024-03-24 08:00] VITALS: BP 153/63
[2024-03-24] MEDS ORDERED: MORPHINE Sulfate 2 MG/ML SYR IV PRN (09:55)
[2024-03-24] MEDS ORDERED: Levothyroxine Sodium 88 MCG TAB PO SCH (10:00)
[2024-03-24] MEDS ORDERED: Peg Electrolyte Lavage Solut 4,000 ML BOT PO PRN (11:20)
[2024-03-24 12:00] VITALS: BP 104/38
[2024-03-24 16:00] VITALS: BP 122/68
[2024-03-24 20:00] VITALS: BP 112/42
[2024-03-24] MEDS ORDERED: methylPREDNISolone sod succ 125 MG VIAL IV SCH (22:00)
[2024-03-25] VITALS (12 sets, daily range): BP systolic 86–156; BP diastolic 32–84
[2024-03-25 05:29] LABS: ALKALINE PHOSPHATASE 67 U/L (46-116); BUN 21 mg/dl (9-23); CHLORIDE 110 mmol/L (98-107); SGPT/ALT 101 U/L (5-49); TOTAL PROTEIN 4.5 gm/dL (6.0-8.0)
[2024-03-25 05:35] LABS: POTASSIUM 4.6 mmol/L (3.4-5.1)
[2024-03-25 06:17] LABS: HEMATOCRIT 27.3 % (37.0-47.0); MEAN CELL VOLUME 86.9 fl (81.0-99.0); MEAN CORPUSCULAR HGB 27.4 pg (27.0-31.0); MEAN CORPUSCULAR HGB CONC 31.5 g/dl (33.0-37.0); RED BLOOD COUNT 3.14 10*6/uL (4.10-5.10); RED CELL DISTRI WIDTH 18.2 % (0-14.5); WHITE BLOOD COUNT 2.3 10*3/uL (4.8-10.8)
[2024-03-25 06:20] LABS: MANUAL DIFF REFLEX YES
[2024-03-25 06:22] LABS: PLATELET COUNT AUTOMATED 22 10*3/uL (130-400)
[2024-03-25 07:32] LABS: TOTAL CELLS COUNTED 100 #CELLS
[2024-03-25 07:33] LABS: BURR CELLS FEW; PLATELET SUFFICIENCY LOW (NORMAL); POLYCHROMASIA SLIGHT
[2024-03-25] MEDS ORDERED: SODIUM CHLORIDE 0.9% 1,000 ML IV SCH (07:50)
[2024-03-25 08:40] LABS: ACT PARTIAL THROMBO TIME 25.9 SECONDS (20.0-32.1)
[2024-03-25] MEDS ORDERED: ERGOCALCIFEROL 50,000 IU CAP (1.25 MG) PEG SCH (10:00)
[2024-03-25 11:34] LABS: BILIRUBIN Negative (Negative); BLOOD 2+ (Negative); CLARITY Clear (Clear); COLOR Yellow (Yellow); GLUCOSE 3+ (Negative); KETONE Negative (Negative); LEUKO ESTERASE Negative (Negative); NITRITE Negative (Negative); PH 5.5 (4.5-8.0); SPECIFIC GRAVITY >= 1.030 (1.001-1.030); UROBILINOGEN 0.2 E.U./dl (0.0-1.0)
[2024-03-25 11:54] LABS: YEAST 2+
[2024-03-25 12:22] LABS: HEMATOCRIT 25.3 % (37.0-47.0); MEAN CELL VOLUME 88.2 fl (81.0-99.0); MEAN CORPUSCULAR HGB 27.5 pg (27.0-31.0); MEAN CORPUSCULAR HGB CONC 31.2 g/dl (33.0-37.0); RED BLOOD COUNT 2.87 10*6/uL (4.10-5.10)
[2024-03-25 12:25] LABS: MANUAL DIFF REFLEX YES
[2024-03-25 12:27] LABS: PLATELET COUNT AUTOMATED 21 10*3/uL (130-400)
[2024-03-25 13:03] LABS: TOTAL CELLS COUNTED 100 #CELLS
[2024-03-25 13:04] LABS: BURR CELLS FEW; OVALOCYTES FEW; PLATELET SUFFICIENCY LOW (NORMAL); POLYCHROMASIA SLIGHT
[2024-03-25 15:07] LABS: ANTICARDIOLIPIN AB, IGG, QN <9 GPL U/mL (0-14); ANTICARDIOLIPIN AB, IGM, QN <9 MPL U/mL (0-12); CARDIOLIPIN AB IGA <9 APL U/mL (0-11)
[2024-03-25] MEDS ORDERED: SODIUM CHLORIDE 0.9% 500 ML IV ONE (16:07)
[2024-03-26] VITALS: BP 109/45
[2024-03-26 05:06] LABS: HBSAG Negative (Negative); HEP B CORE AB, IGM Negative (Negative); HEPATITIS C ANTIBODY Non Reactive (Non Reactive)
[2024-03-26 05:09] LABS: ALKALINE PHOSPHATASE 66 U/L (46-116); BUN 21 mg/dl (9-23); CHLORIDE 110 mmol/L (98-107); POTASSIUM 4.5 mmol/L (3.4-5.1); SGPT/ALT 163 U/L (5-49); TOTAL PROTEIN 4.4 gm/dL (6.0-8.0)
[2024-03-26 05:59] LABS: HEMATOCRIT 27.2 % (37.0-47.0); MEAN CELL VOLUME 86.3 fl (81.0-99.0); MEAN CORPUSCULAR HGB 28.9 pg (27.0-31.0); MEAN CORPUSCULAR HGB CONC 33.5 g/dl (33.0-37.0); RED BLOOD COUNT 3.15 10*6/uL (4.10-5.10); RED CELL DISTRI WIDTH 17.2 % (0-14.5); WHITE BLOOD COUNT 2.2 10*3/uL (4.8-10.8)
[2024-03-26 06:08] LABS: MANUAL DIFF REFLEX YES; PLATELET COUNT AUTOMATED 27 10*3/uL (130-400)
[2024-03-26 07:12] LABS: BASOPHILS 1 % (0-1); BURR CELLS FEW; OVALOCYTES FEW; PLASMA CELL 1 % (0-0); PLATELET SUFFICIENCY LOW (NORMAL); POLYCHROMASIA SLIGHT; TOTAL CELLS COUNTED 100 #CELLS
[2024-03-26 08:00] VITALS: BP 145/62
[2024-03-26] MEDS ORDERED: POTASSIUM PHOSPHATE 30 MMOL in SODIUM CHLORIDE 0.9% 500 ML IV ONE (08:40)
[2024-03-26 12:00] VITALS: BP 143/59
[2024-03-26 14:24] LABS: HEMATOCRIT 29.7 % (37.0-47.0); MEAN CELL VOLUME 87.4 fl (81.0-99.0); MEAN CORPUSCULAR HGB 27.6 pg (27.0-31.0); MEAN CORPUSCULAR HGB CONC 31.6 g/dl (33.0-37.0); PLATELET COUNT AUTOMATED 33 10*3/uL (130-400); RED CELL DISTRI WIDTH 17.3 % (0-14.5); WHITE BLOOD COUNT 2.8 10*3/uL (4.8-10.8)
[2024-03-26 14:41] LABS: MANUAL DIFF REFLEX YES
[2024-03-26 14:46] LABS: BASOPHILS 1 % (0-1); BURR CELLS FEW; OVALOCYTES FEW; PLATELET SUFFICIENCY LOW (NORMAL); TARGET CELLS FEW; TOTAL CELLS COUNTED 100 #CELLS
[2024-03-26 16:00] VITALS: BP 121/77
[2024-03-26 20:00] VITALS: BP 129/55
[2024-03-27] VITALS: BP 123/42
[2024-03-27] MEDS ORDERED: VANCOMYCIN HYDROCHLORIDE PEG SCH
[2024-03-27 05:28] LABS: ALKALINE PHOSPHATASE 67 U/L (46-116); BUN 18 mg/dl (9-23); CHLORIDE 109 mmol/L (98-107); POTASSIUM 4.6 mmol/L (3.4-5.1); SGPT/ALT 191 U/L (5-49); TOTAL PROTEIN 4.6 gm/dL (6.0-8.0)
[2024-03-27 06:04] LABS: HEMATOCRIT 27.8 % (37.0-47.0); MEAN CELL VOLUME 85.8 fl (81.0-99.0); MEAN CORPUSCULAR HGB 28.4 pg (27.0-31.0); MEAN CORPUSCULAR HGB CONC 33.1 g/dl (33.0-37.0); MEAN PLATELET VOLUME 13.2 fl (9.6-12.3); RED BLOOD COUNT 3.24 10*6/uL (4.10-5.10); RED CELL DISTRI WIDTH 17.2 % (0-14.5); WHITE BLOOD COUNT 3.6 10*3/uL (4.8-10.8)
[2024-03-27 06:35] LABS: PLATELET COUNT AUTOMATED 69 10*3/uL (130-400)
[2024-03-27 06:36] LABS: MANUAL DIFF REFLEX YES
[2024-03-27 07:24] LABS: PLATELET SUFFICIENCY LOW (NORMAL); ROULEAUX MODERATE; SCHISTOCYTES MODERATE; TOTAL CELLS COUNTED 100 #CELLS
[2024-03-27 08:00] VITALS: BP 149/61
[2024-03-27] MEDS ORDERED: Vitamin D 1,000 IU TAB (25 MCG) PEG SCH (10:00)
[2024-03-27] MEDS ORDERED: HEEL PROTECTOR DEVICE ONE (13:38)
[2024-03-27] MEDS ORDERED: DIAZEPAM 10 MG/2 ML SYR IV ONE (15:50)
[2024-03-27 16:00] VITALS: BP 125/43
[2024-03-27 20:00] VITALS: BP 142/49; BP 1452/49
[2024-03-28] VITALS: BP 136/49
[2024-03-28 03:24] VITALS: BP 104/50
[2024-03-28 05:02] LABS: BUN 18 mg/dl (9-23); CHLORIDE 106 mmol/L (98-107); POTASSIUM 4.6 mmol/L (3.4-5.1)
[2024-03-28 06:03] LABS: HEMATOCRIT 27.2 % (37.0-47.0); MEAN CORPUSCULAR HGB 27.8 pg (27.0-31.0); MEAN CORPUSCULAR HGB CONC 30.9 g/dl (33.0-37.0); MEAN PLATELET VOLUME 13.1 fl (9.6-12.3); NUCLEATED RED BLOOD CELL 0.4 % (0.0-0.0); RED BLOOD COUNT 3.02 10*6/uL (4.10-5.10); RED CELL DISTRI WIDTH 17.4 % (0-14.5); WHITE BLOOD COUNT 4.9 10*3/uL (4.8-10.8)
[2024-03-28 06:05] LABS: MANUAL DIFF REFLEX YES; MEAN CELL VOLUME 90.1 fl (81.0-99.0); PLATELET COUNT AUTOMATED 124 10*3/uL (130-400)
[2024-03-28 06:57] LABS: PLATELET SUFFICIENCY LOW (NORMAL); TOTAL CELLS COUNTED 100 #CELLS
[2024-03-28 06:58] LABS: BURR CELLS FEW; OVALOCYTES FEW; POLYCHROMASIA SLIGHT; TARGET CELLS FEW
[2024-03-28 08:00] VITALS: BP 105/42
[2024-03-28] MEDS ORDERED: DEXTROSE 10 % IN WATER 250 ML IV PRN (09:45)
[2024-03-28] MEDS ORDERED: Cholecalciferol 5,000 IU CAP (125 MCG) PO SCH (10:00)
[2024-03-28] MEDS ORDERED: INSULIN LISPRO 1 UNIT/0.01 ML SQ SCH (11:30)
[2024-03-28 12:00] VITALS: BP 108/42
[2024-03-28] MEDS ORDERED: FOAM BANDAGE HEEL T ONE (14:17)
[2024-03-28 16:00] VITALS: BP 108/55
[2024-03-28 20:00] VITALS: BP 106/57
[2024-03-29] MEDS ORDERED: HEEL PROTECTOR DEVICE ONE (03:28)
[2024-03-29] MEDS ORDERED: FOAM BANDAGE HEEL T ONE (03:28)
[2024-03-29] MEDS ORDERED: LEPTOSPERMUM HONEY 0.5 OZ TUBE T ONE (03:29)
[2024-03-29 05:14] LABS: BUN 15 mg/dl (9-23); CHLORIDE 103 mmol/L (98-107); POTASSIUM 4.7 mmol/L (3.4-5.1)
[2024-03-29 06:13] LABS: HEMATOCRIT 28.2 % (37.0-47.0); MEAN CELL VOLUME 89.8 fl (81.0-99.0); MEAN CORPUSCULAR HGB CONC 31.2 g/dl (33.0-37.0); NUCLEATED RED BLOOD CELL 0.4 % (0.0-0.0); PLATELET COUNT AUTOMATED 142 10*3/uL (130-400); RED BLOOD COUNT 3.14 10*6/uL (4.10-5.10); RED CELL DISTRI WIDTH 16.9 % (0-14.5); WHITE BLOOD COUNT 7.6 10*3/uL (4.8-10.8)
[2024-03-29 06:21] LABS: MANUAL DIFF REFLEX YES
[2024-03-29 07:34] LABS: PLATELET SUFFICIENCY NORMAL (NORMAL); POLYCHROMASIA SLIGHT; TOTAL CELLS COUNTED 100 #CELLS
[2024-03-29 08:00] VITALS: BP 109/41
[2024-03-29 12:00] VITALS: BP 114/47
[2024-03-29 16:00] VITALS: BP 105/43
[2024-03-29 20:00] VITALS: BP 113/45
[2024-03-30] VITALS: BP 112/43
[2024-03-30 06:31] LABS: ALKALINE PHOSPHATASE 59 U/L (46-116); BUN 14 mg/dl (9-23); CHLORIDE 104 mmol/L (98-107); POTASSIUM 4.4 mmol/L (3.4-5.1); SGPT/ALT 107 U/L (5-49); TOTAL PROTEIN 4.2 gm/dL (6.0-8.0)
[2024-03-30 06:47] LABS: MEAN CELL VOLUME 89.5 fl (81.0-99.0); MEAN CORPUSCULAR HGB 27.8 pg (27.0-31.0); MEAN PLATELET VOLUME 12.3 fl (9.6-12.3); NUCLEATED RED BLOOD CELL 0.5 % (0.0-0.0); RED BLOOD COUNT 3.24 10*6/uL (4.10-5.10); RED CELL DISTRI WIDTH 16.9 % (0-14.5); WHITE BLOOD COUNT 7.6 10*3/uL (4.8-10.8)
[2024-03-30 06:48] LABS: MANUAL DIFF REFLEX YES; PLATELET COUNT AUTOMATED 195 10*3/uL (130-400)
[2024-03-30 07:35] LABS: BURR CELLS MODERATE; PLATELET SUFFICIENCY NORMAL (NORMAL); POLYCHROMASIA SLIGHT; TOTAL CELLS COUNTED 100 #CELLS
[2024-03-30 07:36] LABS: OVALOCYTES FEW; ROULEAUX SLIGHT
[2024-03-30 08:00] VITALS: BP 108/48
[2024-03-30 12:00] VITALS: BP 108/40
[2024-03-30] MEDS ORDERED: METOPROLOL TART50 M1 PEG (15:57)
[2024-03-30] MEDS ORDERED: Synthroid,Levo88 MCG PO (15:57)
[2024-03-30] MEDS ORDERED: PROTONIX40 MG PEG (15:57)
[2024-03-30] MEDS ORDERED: ATORVASTATIN CA80 M1 PEG (15:57)
[2024-03-30] MEDS ORDERED: VITAMIN D3125 MC1 PO (15:57)
[2024-03-30] MEDS ORDERED: SERTRALINE HYDR50 MG PEG (15:57)
[2024-03-30] MEDS ORDERED: OXYBUTYNIN5 MG PEG (15:57)
[2024-03-30] MEDS ORDERED: ASPIRIN ADULT L81 M2 PEG (15:57)
[2024-03-30] MEDS ORDERED: VANCOMYCIN250 MG/2.5 PEG (15:57)
[2024-03-30] MEDS ORDERED: NATURE'S BLEND F1 MG PEG (15:57)
[2024-03-30] MEDS ORDERED: MIRTAZAPINE15 M2 PEG (15:57)
[2024-03-30 16:00] VITALS: BP 102/40
== END 2024-03-30 18:00 | DRG 871 ==
LOC: ED 13:20 → 4E 03-17 02:32 → ICCU 03-17 02:32 → EDHOLD 03-17 02:32 → 4E 03-17 15:02 → ICCU 03-19 14:02 → 4E 03-28 03:23
PROVIDERS: Family Medicine; Internal Medicine; Internal Medicine Hematology & Oncology; Internal Medicine Pulmonary Disease; Student in an Organized Health Care Education/Training Program; ADMIT Internal Medicine; ATTEND Internal Medicine
PROC: 02H633Z Insertion of Infusion Device into Right Atrium, Percutaneous Approach (ICD-10-PCS; 2024-03-17)
PROC: B548ZZA Ultrasonography of Superior Vena Cava, Guidance (ICD-10-PCS; 2024-03-17)
PROC: 30233N1 Transfusion of Nonautologous Red Blood Cells into Peripheral Vein, Percutaneous Approach (ICD-10-PCS; 2024-03-21)
PROC: 0DH63UZ Insertion of Feeding Device into Stomach, Percutaneous Approach (ICD-10-PCS; principal; 2024-03-22)
DX: A41.9 Sepsis, unspecified organism (principal); G93.41 Metabolic encephalopathy; N17.0 Acute kidney failure with tubular necrosis; I63.9 Cerebral infarction, unspecified; N39.0 Urinary tract infection, site not specified; E87.1 Hypo-osmolality and hyponatremia; A04.72 Enterocolitis due to Clostridium difficile, not specified as recurrent; D69.3 Immune thrombocytopenic purpura; D61.818 Other pancytopenia; Z16.20 Resistance to unspecified antibiotic; Z68.41 Body mass index [BMI] 40.0-44.9, adult; E44.0 Moderate protein-calorie malnutrition; Z66 Do not resuscitate; R65.20 Severe sepsis without septic shock; E86.0 Dehydration; K13.79 Other lesions of oral mucosa; R73.9 Hyperglycemia, unspecified; E87.8 Other disorders of electrolyte and fluid balance, not elsewhere classified; E87.5 Hyperkalemia; N18.30 Chronic kidney disease, stage 3 unspecified; B96.20 Unspecified Escherichia coli [E. coli] as the cause of diseases classified elsewhere; I12.9 Hypertensive chronic kidney disease with stage 1 through stage 4 chronic kidney disease, or unspecified chronic kidney disease; E03.9 Hypothyroidism, unspecified; I25.10 Atherosclerotic heart disease of native coronary artery without angina pectoris; L89.326 Pressure-induced deep tissue damage of left buttock; L89.316 Pressure-induced deep tissue damage of right buttock; L89.156 Pressure-induced deep tissue damage of sacral region; L89.626 Pressure-induced deep tissue damage of left heel; L89.616 Pressure-induced deep tissue damage of right heel; K29.70 Gastritis, unspecified, without bleeding; R13.10 Dysphagia, unspecified; R33.9 Retention of urine, unspecified; I95.9 Hypotension, unspecified; Z51.5 Encounter for palliative care; I25.2 Old myocardial infarction; Z98.891 History of uterine scar from previous surgery; Z90.49 Acquired absence of other specified parts of digestive tract; Z95.5 Presence of coronary angioplasty implant and graft; Z87.891 Personal history of nicotine dependence; Z82.0 Family history of epilepsy and other diseases of the nervous system; Z80.0 Family history of malignant neoplasm of digestive organs; Z82.49 Family history of ischemic heart disease and other diseases of the circulatory system; Z79.82 Long term (current) use of aspirin; Z79.899 Other long term (current) drug therapy

== ENCOUNTER 2024-07-13 18:17 | Observation (INO) | payer MEDICARE ==
[~2024-07-13] VITALS: Ht 157.4 cm; Wt 88.9 kg
[~2024-07-13 18:17] MED LIST changes: +ASPIRIN ADULT L81 M2 PEG; +ATORVASTATIN CA80 M1 PEG; +METOPROLOL TART50 M1 PEG; +MIRTAZAPINE15 M2 PEG; +MIRTAZAPINE7.5 MG PO; +NATURE'S BLEND F1 MG PEG; +OXYBUTYNIN5 MG PEG; +POTASSIUM CHLO10 MEQ PO; +PROTONIX40 MG PEG; +SERTRALINE HYDR50 MG PEG; +Synthroid,Levo88 MCG PO; +VANCOMYCIN250 MG/2.5 PEG; +VITAMIN D3125 MC1 PO
[2024-07-13 18:20] VITALS: BP 182/84
[2024-07-13 18:46] LABS: BASO % 0.3 % (0.0-1.0); EOS # 0.1 10*3/uL (0.0-0.4); EOS % 0.8 % (1.0-4.0); HEMATOCRIT 38.6 % (37.0-47.0); LYMPH # 0.9 10*3/uL (1.3-4.4); LYMPH % 12.1 % (27.0-41.0); MEAN CELL VOLUME 83.4 fl (81.0-99.0); MEAN CORPUSCULAR HGB 25.3 pg (27.0-31.0); MEAN CORPUSCULAR HGB CONC 30.3 g/dl (33.0-37.0); MEAN PLATELET VOLUME 11.5 fl (9.6-12.3); MONO # 0.4 10*3/uL (0.1-1.0); MONO % 6.1 % (3.0-9.0); NEUT # 5.8 10*3/uL (2.3-7.9); NEUT % 80.6 % (47.0-73.0); PLATELET COUNT AUTOMATED 147 10*3/uL (130-400); RED BLOOD COUNT 4.63 10*6/uL (4.10-5.10); RED CELL DISTRI WIDTH 14.6 % (0-14.5); WHITE BLOOD COUNT 7.2 10*3/uL (4.8-10.8)
[2024-07-13 18:58] LABS: ACT PARTIAL THROMBO TIME 24.7 SECONDS (20.0-32.1)
[2024-07-13 19:00] VITALS: BP 188/64
[2024-07-13 19:04] LABS: BUN 9 mg/dl (9-23); CHLORIDE 106 mmol/L (98-107); POTASSIUM 3.9 mmol/L (3.4-5.1)
[2024-07-13 19:40] VITALS: BP 178/59
[2024-07-13] MEDS ORDERED: METOPROLOL SUCC25 M2 PO (19:52)
[2024-07-13] MEDS ORDERED: ZOLOFT100 MG PO (19:54)
[2024-07-13] MEDS ORDERED: Acetaminophen/Hydrocodone 5 MG/325 MG TABLET PO PRN (20:00)
[2024-07-13] MEDS ORDERED: MORPHINE Sulfate 2 MG/ML SYR IV PRN (20:00)
[2024-07-13] MEDS ORDERED: Ondansetron Hydrochloride 4 MG/2 ML VIAL IV PRN (20:00)
[2024-07-13] MEDS ORDERED: ACETAMINOPHEN 325 MG TAB PO PRN (20:00)
[2024-07-13] MEDS ORDERED: BISACODYL 5 MG TAB PO PRN (20:00)
[2024-07-13] MEDS ORDERED: SODIUM CHLORIDE 0.9% 100 ML BAG IV ONE (20:10)
[2024-07-13] MEDS ORDERED: IOHEXOL 350 MG/ML 100 ML VIAL IV ONE (20:10)
[2024-07-13] MEDS ORDERED: Sertraline Hydrochloride 50 MG TAB PO SCH (22:00)
[2024-07-13] MEDS ORDERED: Mirtazapine 15 MG TAB PEG SCH (22:00)
[2024-07-13] MEDS ORDERED: ATORVASTATIN CALCIUM 80 MG TAB PO SCH (22:00)
[2024-07-13 23:37] VITALS: BP 174/60
[2024-07-13 23:44] LABS: BILIRUBIN Negative (Negative); BLOOD Negative (Negative); CLARITY Clear (Clear); COLOR Yellow (Yellow); GLUCOSE Negative (Negative); KETONE Negative (Negative); LEUKO ESTERASE Negative (Negative); NITRITE Negative (Negative); PH 7.5 (4.5-8.0); UROBILINOGEN 0.2 E.U./dl (0.0-1.0)
[2024-07-14] VITALS: BP 145/74
[2024-07-14 05:06] VITALS: BP 164/56
[2024-07-14] MEDS ORDERED: Levothyroxine Sodium 88 MCG TAB PO SCH (06:00)
[2024-07-14] MEDS ORDERED: Pantoprazole Sodium 40 MG TAB PO SCH (06:00)
[2024-07-14 07:44] LABS: FREE T4 0.91 ng/dl (0.89-1.76)
[2024-07-14 07:58] LABS: BUN 6 mg/dl (9-23); CHLORIDE 104 mmol/L (98-107); POTASSIUM 3.6 mmol/L (3.4-5.1)
[2024-07-14 08:40] VITALS: BP 158/56
[2024-07-14] MEDS ORDERED: METOPROLOL SUCCINATE XR 25 MG TAB PO SCH (10:00)
[2024-07-14] MEDS ORDERED: FOLIC ACID 1 MG TAB PEG SCH (10:00)
[2024-07-14] MEDS ORDERED: Enoxaparin Sodium 40 MG/0.4 ML SYR SC SCH (10:00)
[2024-07-14] MEDS ORDERED: Cholecalciferol 5,000 IU CAP (125 MCG) PO SCH (10:00)
[2024-07-14] MEDS ORDERED: ASPIRIN ENTERIC COATED 81 MG TAB PO SCH (10:00)
[2024-07-14] MEDS ORDERED: Oxybutynin Chloride 5 MG TAB PO SCH (10:00)
[2024-07-14] MEDS ORDERED: SODIUM CHLORIDE 0.9% 100 ML IV ONE (12:07)
[2024-07-14] MEDS ORDERED: IOHEXOL 350 MG/ML 100 ML VIAL IV ONE (12:07)
[2024-07-14 13:03] VITALS: BP 173/78
[2024-07-14] MEDS ORDERED: LISINOPRIL 2.5 MG TAB PO SCH (13:25)
[2024-07-14] MEDS ORDERED: LORazepam 2 MG/ML VIAL IV ONE (14:20)
[2024-07-14 20:14] VITALS: BP 165/61
[2024-07-14 20:50] VITALS: BP 143/44
[2024-07-15] MEDS ORDERED: Levothyroxine Sodium 100 MCG TAB PO SCH (06:00)
[2024-07-15 06:26] LABS: BASO % 0.3 % (0.0-1.0); EOS # 0.1 10*3/uL (0.0-0.4); EOS % 1.6 % (1.0-4.0); HEMATOCRIT 38.3 % (37.0-47.0); LYMPH # 1.1 10*3/uL (1.3-4.4); LYMPH % 16.6 % (27.0-41.0); MEAN CELL VOLUME 83.8 fl (81.0-99.0); MEAN CORPUSCULAR HGB 24.7 pg (27.0-31.0); MEAN CORPUSCULAR HGB CONC 29.5 g/dl (33.0-37.0); MEAN PLATELET VOLUME 12.3 fl (9.6-12.3); MONO # 0.5 10*3/uL (0.1-1.0); MONO % 7.8 % (3.0-9.0); NEUT # 4.7 10*3/uL (2.3-7.9); NEUT % 73.5 % (47.0-73.0); PLATELET COUNT AUTOMATED 133 10*3/uL (130-400); RED BLOOD COUNT 4.57 10*6/uL (4.10-5.10); RED CELL DISTRI WIDTH 14.8 % (0-14.5); WHITE BLOOD COUNT 6.4 10*3/uL (4.8-10.8)
[2024-07-15 06:38] LABS: ALKALINE PHOSPHATASE 77 U/L (46-116); BUN 8 mg/dl (9-23); CHLORIDE 105 mmol/L (98-107); POTASSIUM 4.2 mmol/L (3.4-5.1); TOTAL PROTEIN 6.3 gm/dL (6.0-8.0)
[2024-07-15 06:52] LABS: SGPT/ALT < 7 U/L (5-49)
[2024-07-15 08:00] VITALS: BP 107/48
[2024-07-15 09:30] VITALS: BP 112/52
[2024-07-15 12:00] VITALS: BP 115/49
[2024-07-15] MEDS ORDERED: LEVOTHYROXINE100 MC1 PO (15:53)
[2024-07-15] MEDS ORDERED: LISINOPRIL2.5 MG PO (15:53)
[2024-07-15 16:00] VITALS: BP 127/52
[2024-07-17 11:08] LABS: ORGANISM ID Final report (.)
== END 2024-07-15 19:20 | disposition home health service (06) ==
LOC: ED 18:17 → EDHOLD 19:50 → 4E 19:50 → EDHOLD 19:50 → 4E 07-14 18:17
PROVIDERS: Internal Medicine; Student in an Organized Health Care Education/Training Program; ADMIT Internal Medicine; ATTEND Internal Medicine
DX: G45.9 Transient cerebral ischemic attack, unspecified (principal); G93.41 Metabolic encephalopathy; I16.0 Hypertensive urgency; D64.9 Anemia, unspecified; R79.82 Elevated C-reactive protein (CRP); I63.81 Other cerebral infarction due to occlusion or stenosis of small artery; I10 Essential (primary) hypertension; F32.9 Major depressive disorder, single episode, unspecified; I25.10 Atherosclerotic heart disease of native coronary artery without angina pectoris; E03.9 Hypothyroidism, unspecified; R33.9 Retention of urine, unspecified; I63.9 Cerebral infarction, unspecified; R73.9 Hyperglycemia, unspecified; Z79.899 Other long term (current) drug therapy

== ENCOUNTER → 2025-01-23 | Outpatient (CLI) | payer MEDICARE ==
[~2025-01-23] MED LIST changes: +LEVOTHYROXINE100 MC1 PO; +LISINOPRIL2.5 MG PO; +METOPROLOL SUCC25 M2 PO
[2025-01-23 10:45] LABS: BASO % 0.7 % (0.0-1.0); EOS # 0.1 10*3/uL (0.0-0.4); EOS % 1.5 % (1.0-4.0); HEMATOCRIT 44.4 % (37.0-47.0); MEAN CELL VOLUME 89.9 fl (81.0-99.0); MEAN CORPUSCULAR HGB 27.5 pg (27.0-31.0); MEAN CORPUSCULAR HGB CONC 30.6 g/dl (33.0-37.0); MEAN PLATELET VOLUME 11.1 fl (9.6-12.3); MONO # 0.3 10*3/uL (0.1-1.0); MONO % 5.1 % (3.0-9.0); NEUT # 4.3 10*3/uL (2.3-7.9); NEUT % 72.4 % (47.0-73.0); PLATELET COUNT AUTOMATED 193 10*3/uL (130-400); RED BLOOD COUNT 4.94 10*6/uL (4.10-5.10); RED CELL DISTRI WIDTH 15.5 % (0-14.5); WHITE BLOOD COUNT 5.9 10*3/uL (4.8-10.8)
[2025-01-23 11:05] LABS: BUN 12 mg/dl (9-23); CHLORIDE 104 mmol/L (98-107); CHOLESTEROL 286 mg/dL (<200); LDL CHOLESTEROL 185 mg/dL (9-159); POTASSIUM 4.3 mmol/L (3.4-5.1); TRIGLYCERIDES 141 mg/dl (<150)
== END | disposition home or self-care (01) ==
LOC: LAB 10:20
PROVIDERS: ATTEND Registered Nurse
DX: I10 Essential (primary) hypertension (principal); E78.5 Hyperlipidemia, unspecified; E03.9 Hypothyroidism, unspecified